=== PATIENT | female | born 1945 ===

== ENCOUNTER 2022-07-13 11:41 | Inpatient (IN) ==
--- NOTE | 2022-07-11 15:54 | History & Physical Report ---
Date of Service July 11, 2022 Assessment & Plan (1) Right foot ulcer: Plan: Schedule right foot I&D ulcerations, removal of retrocalcaneal nail from pantalar fusion site, implantation Stimulan antibiotic beads for 07/13/2022. All potential risks, benefits, complications, alternatives, and rehab have been discussed with the patient and she wishes to proceed. Plan to restart aspirin 81 mg daily postop for DVT prophylaxis. (2) Infected hardware in right lower extremity: History of Present Illness Chief Complaint: Right foot ulceration Primary Care Provider: Jayesh Jayesh This is a patient with a chronic history of right lower extremity ulcerations secondary to peripheral vascular disease. She previously had an equinus contracture which developed lateral ankle and foot ulcerations. Once the ulcerations had improved and resolved, she underwent a right pantalar fusion with retrocalcaneal nail. However, she has had issues with skin healing as well as recurrent ulcerations and infection of the right lower extremity. She was set up previously for removal of the hardware however went into acute renal fail ure. She is now medically stable and is being set up for surgical treatment. Allergies Allergy/AdvReac Type Severity Reaction Status Date / Time adhesive tape Allergy Severe SKIN GETS Verified 07/11/22 10:51 RAW-PAPER TAPE OK codeine Allergy Unknown Unknown Verified 07/11/22 10:51 Home Medications Medication Instructions Recorded Confirmed Type amoxicillin 500 mg-potassium 1 tab PO BID 07/11/22 07/11/22 History clavulanate 125 mg tablet (Augmentin) aspirin 81 mg tablet,delayed 81 mg PO QAM 07/11/22 07/11/22 History release gabapentin 300 mg capsule 300 mg PO TID 07/11/22 07/11/22 History insulin NPH-regular human 100 22 - 28 unit subcut BID 07/11/22 07/11/22 History unit/mL (70-30) subcutaneous cartridge lactobacillus combination no.4 3 3,000 mmu cells PO QPM 07/11/22 07/11/22 History billion cell capsule (Probiotic) metformin 500 mg tablet 500 mg PO BID 07/11/22 07/11/22 History multivitamin 1 tab PO QAM 07/11/22 07/11/22 History pantoprazole 40 mg tablet,delayed 40 mg PO QAM 07/11/22 07/11/22 History release rosuvastatin 5 mg tablet 5 mg PO Q2D 07/11/22 07/11/22 History Past Med/Surg History Medical History Anxiety HX Arrhythmia F/U DR HARPER [place] Diabetes mellitus, type 2 GI bleed BLEEDING ULCERS 2019-4 UNITS BLOOD TRANSFUSED Implantable loop recorder present Neuropathy Stroke 12/16/21-[facility]AFFECTED RIGHT [id number] ISSUES SINCE- WAS ON ELIQUIS-STOPPED 05/24/22 ONLY ON ASPIRIN NOW-F/U DR JOSE WASHBURN Surgical History History of appendectomy History of cholecystectomy History of colonoscopy History of esophagogastroduodenoscopy (EGD) Implantable loop recorder present Nausea and vomiting after administration of anesthetic agent YRS AGO S/P foot surgery, left S/P lumpectomy, right breast BENIGN-NO ARM RESTRICTION Status post right foot surgery X 3 Family History Mother Family history of reaction to anesthesia PONV Brother Family history of diabetes mellitus Brother Family history of diabetes mellitus Brother Family history of diabetes mellitus Sister Family history of diabetes mellitus Sister Family history of diabetes mellitus Social History Smoking Status: Never smoker Second Hand Exposure: No; Do You Dip or Chew Tobacco: No; Hx Alcohol Use: No Hx Substance Use: No Preferred Language: [place] Communication Ability: Effective Etcher Electrolytic Required: No Beliefs That Will Affect Care: None Current Living Situation: Spouse current occupational status: retired Other Information That Helps Us Care for You: No Feels Safe at Home: Yes Safety Concerns: Feels Safe At This Time Assistive Devices: Denture - Upper, Glasses and Wheelchair Assistive Devices Comment: PARTIAL Physical Exam Constitutional: well developed and well nourished; no acute distress ENMT: external ear and nose normal, oropharynx normal Neck: trachea midline Respiratory: normal respiratory effort, lungs clear to auscultation Cardiovascular: Rate/Rhythm: regular rate and regular rhythm Gastrointestinal (Abdomen): normal bowel sounds, soft, nontender, no hepatosplenomegaly Musculoskeletal: Ankle: + skin erythema (Right lower extremity near wounds) and + limited ROM of ankle (Right pantalar fusion); no ecchymosis Skin: no rashes, warm and dry + ulcer (Right anterior medial distal tibia, plantar heel) Neurologic: + abnormal touch/pain/proprioception (Decree sensation bilateral lower extremities) Psychiatric: A+Ox3, euthymic affect Speech: normal rate/rhythm/volume of speech Lymphatic: no cervical or axillary lymphadenopathy
--- NOTE | 2022-07-12 09:37 | Anesthesiology Consultation ---
Date of Service July 12, 2022 Assessment & Plan (1) Encounter for pre-operative examination: Plan - check BSG and BMP STAT am DOS. - anemia (H&H ), hyperkalemia (K 5.3), renal function (BUN 46, Cr 2). Discussed case with Dr. Rothman who advised repeat BMP STAT am DOS. - PCP unavailable per surgeon's office, no available loop recorder report. Patient acceptable to present for surgery tomorrow per discussion with Dr. Rothman, will pend anesthesiologist evaluation am DOS. - cardiology 06/21/22: "...BP/pulse acceptable...denies CP, pressure or squeezing sensation. Breathing has been stable...took her off the eliquis...12/2021 Holter- WNL...04/2019 admit after elective echocardiogram showing large pericardial effusion...s/p pericardiocentesis...04/2019 < 50% R ICA stenosis, normal left carotid...Hx CVA with concern for cardioembolic source, STACIA with no evidence of PFO, off AC at this time through neuro...continue to monitor with ILR. Pericardial effusion-no further on echo, monitor...Return in 1 year..." - COVID screening: Per home assessment nurse on 07/11/2022: Travel screen negative, no known COVID-19 positive contacts or current COVID-19 related symptoms in past 2 weeks. Pt vaccinated. Pre-op COVID testing to surgeon's discretion. Chart Review Chart Review: Acceptable Risk for Surgery (pending anesthesiologist evaluation am DOS) and Patient NOT seen in Pre Admission Testing History Surgery Operation Date: 07/13/22 13:25 Proposed Procedures p Right Ankle Removal of Retrocalcaneal Nail, - Luis Wallis DO s Implantation of Stimulan Antibiotic Beads - Luis Wallis DO Height/Weight Height: 5 ft 1 in Weight: 61.689 kg Allergies Allergy/AdvReac Type Severity Reaction Status Date / Time adhesive tape Allergy Severe SKIN GETS Verified 07/11/22 10:51 RAW-PAPER TAPE OK codeine Allergy Unknown Unknown Verified 07/11/22 10:51 Medications Home Medications Medication Instructions Recorded Confirmed Last Taken amoxicillin 500 mg-potassium 1 tab PO BID 07/11/22 07/11/22 Unknown clavulanate 125 mg tablet (Augmentin) aspirin 81 mg tablet,delayed 81 mg PO QAM 07/11/22 07/11/22 Unknown release gabapentin 300 mg capsule 300 mg PO TID 07/11/22 07/11/22 Unknown insulin NPH-regular human 100 22 - 28 unit subcut BID 07/11/22 07/11/22 Unknown unit/mL (70-30) subcutaneous cartridge lactobacillus combination no.4 3 3,000 mmu cells PO QPM 07/11/22 07/11/22 Unknown billion cell capsule (Probiotic) metformin 500 mg tablet 500 mg PO BID 07/11/22 07/11/22 Unknown multivitamin 1 tab PO QAM 07/11/22 07/11/22 Unknown pantoprazole 40 mg tablet,delayed 40 mg PO QAM 07/11/22 07/11/22 Unknown release rosuvastatin 5 mg tablet 5 mg PO Q2D 07/11/22 07/11/22 Unknown Past Medical History Medical History (Updated 07/12/22 @ 09:19 by Kelly Benavidez PA-C) Anxiety HX Diabetes mellitus, type 2 IDDM History of blood transfusion 4 units PRBCs 2019 in setting of GI bleed History of GI bleed 2019 Implantable loop recorder present Mitral regurgitation mild to moderate Neuropathy Stroke 12/16/21-ADMITT[facility]-AFFECTED RIGHT [id number] ISSUES SINCE- WAS ON ELIQUIS-STOPPED 05/24/22 ONLY ON ASPIRIN NOW-F/U DR JOSE WASHBURN Past Family History Family History Mother Family history of reaction to anesthesia PONV Brother Family history of diabetes mellitus Brother Family history of diabetes mellitus Brother Family history of diabetes mellitus Sister Family history of diabetes mellitus Sister Family history of diabetes mellitus Past Surgical History Surgical History History of appendectomy History of cholecystectomy History of colonoscopy History of esophagogastroduodenoscopy (EGD) Implantable loop recorder present Nausea and vomiting after administration of anesthetic agent YRS AGO S/P foot surgery, left S/P lumpectomy, right breast BENIGN-NO ARM RESTRICTION Status post right foot surgery X 3 Social History Smoking Status: Never smoker Do You Dip or Chew Tobacco: No Hx Alcohol Use: No Hx Substance Use: No Testing Laboratory Results 05/18/2022 WBC: 7.7 H/H: 10/33 PLATELETS: 358 SODIUM: 145 POTASSIUM: 5.3 CHLORIDE: 110 CO2: 26 BUN: 46 CREATININE: 2 GLUCOSE: 171 PT: 15 PTT: 23 INR: 1.3 Electrocardiogram Date: 07/19/21 Sinus rhythm with first degree AV block with occasional ventricular premature complexes, rate 62 bpm Chest X-Ray Date: 05/18/22 Loop recorder is incidentally noted on the left No acute cardiopulmonary abnormalities
[~2022-07-13 11:41] MED LIST: SODIUM CHLORIDE 0.9% 1000ML IV SCH
[2022-07-13] MEDS ORDERED: MIDAZOLAM HCL 1 MG/ML 2ML VIAL ONE (11:57)
[2022-07-13] MEDS ORDERED: fentaNYL citrate 100 MCG/2 ML VIAL ONE ×2 (11:58→16:13)
[2022-07-13] MEDS ORDERED: PROPOFOL IV EMULSION 10 MG/ML 20 ML VIAL IV ONE ×2 (11:58→16:52)
[2022-07-13] MEDS ORDERED: LIDOCAINE 2% MPF LOCAL 5 ML VIAL INFIL ONE (11:58)
[2022-07-13 12:40] LABS: BUN Creatinine Ratio 18.8 (10-20); Calcium 9.3 mg/dl (8.5-10.1); Est GFR (African American) 27.7 ml/min; Est GFR (Non-African American) 23.9 ml/min; Potassium 4.8 mmol/L (3.5-5.1)
[2022-07-13] MEDS ORDERED: ONDANSETRON INJ 2 MG/ML 2 ML VIAL ONE ×2 (13:02→16:52)
[2022-07-13] MEDS ORDERED: DEXAMETHASONE SOD INJ 4 MG/ML VIAL ONE (13:02)
--- NOTE | 2022-07-13 13:21 | History & Physical Bridge Note ---
Date of Service July 13, 2022 History & Physical Bridge Note I have examined the patient, reviewed the History & Physical and in the interval since the performance of the History & Physical I have noted the following changes of clinical significance: no changes noted
[2022-07-13] MEDS ORDERED: ceFAZolin 2000MG 2,000 MG/15 ML SYR IV ONE (13:31)
[2022-07-13] MEDS ORDERED: ceFAZolin 2,000 MG/15 ML IV PUSH IV ONE (13:33)
[2022-07-13] MEDS ORDERED: ONDANSETRON INJ 2 MG/ML 2 ML VIAL IV PRN ×2 (15:31→20:31)
[2022-07-13] MEDS ORDERED: fentaNYL citrate 100 MCG/2 ML VIAL IV PRN (15:31)
[2022-07-13] MEDS ORDERED: ATROPINE SULFATE 0.1 MG/ML 10ML SYR IV PRN (15:31)
[2022-07-13] MEDS ORDERED: ePHEDrine sulfate 50 MG/ML AMP IV PRN (15:31)
[2022-07-13] MEDS ORDERED: ROPIVACAINE 0.5% 5 MG/ML 30 ML VIAL ONE (16:19)
[2022-07-13] MEDS ORDERED: BUPIVACAINE 0.5 % 5 MG/1 ML MPF 30ML VIAL ONE (16:27)
[2022-07-13] MEDS ORDERED: VANCOMYCIN HCL 1000MG/20ML VIAL ONE (16:32)
[2022-07-13] MEDS ORDERED: GENTAMICIN SULFATE 40 MG/ML 2 ML VIAL ONE (16:32)
[2022-07-13] MEDS ORDERED: ceFAZolin 330 MG/ML 1 GM VIAL ONE (17:33)
[2022-07-13] MEDS ORDERED: ALBUTEROL HFA INHALER 8.5 GM ONE (18:31)
--- NOTE | 2022-07-13 18:50 | Post Operative Brief Note ---
Immediate Post Op Note v1 Date of Surgery July 13, 2022 Pre & Post Diagnosis Operation Date: 07/13/22 13:25 Pre-Op Diagnosis: Right infected retrocalcaneal nail hardware in right lower extremity, medial tibial ulcer 1.4 cm x 0.7 cm, medial tibial ulcer 1.5 cm x 0.7 cm Post-Op Diagnosis: Right infected retrocalcaneal nail hardware in right lower extremity, medial tibial ulcer 1.4 cm x 0.7 cm, medial tibial ulcer 1.5 cm x 0.7 cm I identified the patient and participated in the time-out.: Yes Procedure Operation Date: 07/13/22 13:25 Actual Procedures p Right Ankle Removal of infected retrocalcaneal Nail, Irrigation and Debridement Medial Tibial Ulcer 1.4 cm x 0.7 cm including skin, dermis, fascia and periosteum, irrigation debridement medial tibial ulcer 1.5 cm x 0.7 cm including skin, dermis, fascia and periosteum(Right) - Luis Wallis DO s Implantation of Stimulan Antibiotic Beads right tibia/talus/calcaneus (Right) - Luis Wallis DO Surgeon Luis Wallis DO Hide House Supervisor Antony Dominguez PA-C Estimated Blood Loss 15 Findings Consistent with Post-Op Diagnosis Specimens Aerobic, anaerobic, gram stain deep tibia Tissue for pathological assessment distal tibia Anesthesia Type General Regional Complications none Disposition Accompanied Patient To Recovery: No
[2022-07-13] MEDS ORDERED: MEPERIDINE HCL 25 MG/ML CARP/VIAL ONE (19:13)
[2022-07-13] MEDS ORDERED: LABETALOL HCL IV 5 MG/ML 20ML IV ONE (19:29)
[2022-07-13] MEDS ORDERED: LABETALOL HCL IV 5 MG/ML 20ML IV STA (19:41)
--- NOTE | 2022-07-13 20:29 | Fluoroscopy Report ---
FL ankle RT 2V CLINICAL HISTORY: RIGHT ANKLE REMOVAL OF RETROCALCANEAL NAIL COMPARISON STUDY: None. FLUOROSCOPY TIME: 34 seconds. FLUOROSCOPIC IMAGES: 3 FINDINGS: Bony detail is diminished given fluoroscopic technique. Previous hardware tract is noted wi thin the tibia. Placement of antibiotic-impregnated beads is noted. Right ankle/hindfoot deformity is present. IMPRESSION: Fluoroscopy provided during removal of hardware and implantation of antibiotic impregnat ed beads. ACT 112: Negative or not required by law. Electronically signed by: Allen Bee M.D. 07/13/2022 8:28 PM
--- NOTE | 2022-07-13 20:29 | Anesthesiology Progress Note ---
Date of Service July 13, 2022 Anesthesia Post Procedure Vital Signs Vital Signs: Temp Pulse Pulse Resp BP Pulse Ox O2 Del Method 07/13/22 20:05 68 17 161/61 H 97 Room Air 07/13/22 19:55 70 20 158/68 H 97 Room Air 07/13/22 19:45 36.6 C 69 12 140/98 94 Room Air 07/13/22 19:35 68 12 162/71 H 95 Room Air 07/13/22 19:25 73 12 173/90 H 98 Room Air 07/13/22 19:15 74 12 174/78 H 100 Oxymask 07/13/22 19:05 72 12 167/72 H 95 Oxymask 07/13/22 18:56 36.4 C L 74 16 124/81 97 Oxymask 07/13/22 12:20 36.8 C 78 18 166/73 H 96 Room Air O2 Flow Rate 07/13/22 20:05 07/13/22 19:55 07/13/22 19:45 07/13/22 19:35 07/13/22 19:25 07/13/22 19:15 9 07/13/22 19:05 9 07/13/22 18:56 9 07/13/22 12:20 Transfer of Care Handoff Completed per policy Notes Mental Status: alert / awake / arousable and participated in evaluation Patient Amnestic to Procedure: Yes Nausea / Vomiting: adequately controlled Pain: adequately controlled Airway Patency, RR, SpO2: stable & adequate BP & HR: stable & adequate Hydration State: stable & adequate Anesthetic Complications: no major complications apparent and Pt Satisfied with anesthetic care
[2022-07-13] MEDS ORDERED: HYDROmorphone INJ 0.5 MG/0.5 ML SYR IV PRN (20:31)
[2022-07-13] MEDS ORDERED: SODIUM CHLORIDE 0.9% 1000ML 1,000 ML IV SCH (20:31)
[2022-07-13] MEDS ORDERED: MAGNESIUM HYDROXIDE SUSP 30 ML UDC PO PRN (20:31)
[2022-07-13] MEDS ORDERED: PHARMACY GLYCEMIC MGMT CONSULT PRN (20:31)
[2022-07-13] MEDS ORDERED: METOCLOPRAMIDE HCL INJ 5 MG/ML 2 ML VIAL IV PRN (20:31)
[2022-07-13] MEDS ORDERED: bisacodyL 10 MG SUPP PR PRN (20:31)
[2022-07-13] MEDS ORDERED: VANCOMYCIN CONSULT ACTIVE PRN (20:31)
[2022-07-13] MEDS ORDERED: oxyCODONE HCL IR 5 MG TAB (IMMEDIATE RELEASE) PO PRN (20:31)
[2022-07-13] MEDS ORDERED: NALOXONE HCL 0.4 MG/1 ML VIAL/CARP IV PRN (20:31)
[2022-07-13] MEDS ORDERED: DEXTROSE 50% 50 ML SYRINGE IV PRN (21:00)
[2022-07-13] MEDS ORDERED: GLUCAGON FOR INJ 1 MG VIAL SQ PRN (21:00)
[2022-07-13] MEDS ORDERED: GLUCOSE 40% GEL 15 GM TUBE PO PRN (21:00)
[2022-07-13] MEDS ORDERED: GLUCOSE 10 TAB/TUBE PO PRN (21:00)
--- NOTE | 2022-07-13 21:03 | Hospitalist Consultation ---
Date of Consultation July 13, 2022 Assessment & Plan (1) Infected hardware in right lower extremity: POD #0 for removal of hardware, I&D of ulcer and implantation of abx beads performed by DR. Wallis - Pain control per primary team- tiered and with rescue Narcan available as you have - ABX per primary team - IVF per primary team - Dressings and drains per primary team - VTE prophylaxis per primary team - Blood Transfusions per primary team - Diet per primary team - PT/OT per primary team (2) Stroke: History of CVA 2021, thought to be cardioembolic in nature with loop recorder in place - ASA as above restart when hemostasis ensured by primary surgical tea - She is on every other day statin - Follow BP - no residual symptoms (3) HTN (hypertension): Usually well controlled per patient - previously was on Amlodipine but since has been discontinued - Notify if > 180 or symptoms (4) Anxiety: Follow - no acute needs (5) History of GI bleed: Continue PPI (6) Diabetes mellitus, type 2: Glycemic pharmacy consulted (7) Carotid artery disease: <50% on right none on left - continue statin - routine screenings with PCP Supervising Physician Co-Signing Physician Notes Patient seen and examined, chart reviewed, case discussed with Babita and I agree with the assessment and plan as above. In brief, patient is a pleasant 76yo female with history of DM, HTN, prior CVA and history of pericardial effusion. She had removal of infected hardware with debridement of ulcers performed today by Dr. Wallis on the right ankle. Surgery went well with no complications identified. On exam she is resting comfortably, pain well controlled, NAD RLE with dressing in place +S1/S2, regular, no m/r/g Lungs CTA Abd soft, NT/ND Ext RLE dressed, sensation intact Labs and images reviewed. Assessment/Plan - Post-operative management per primary team - pain control, antibiotics, anti- emetics, PT/OT HTN - Amlodipine was recently discontinued. Pain control. Monitor BP H/O GIB - PPI H/O CVA - ASA when cleared with primary team Remainder as above History of Present Illness Reason for Consultation: Listed reason for consultation: Post op Requesting Physician: Dr. Wallis Attending Physician: Luis Wallis DO History of Present Illness 76 YOF with medical history of: Pericardial Effusion (2018), CVA (12/09), DM II (on insulin), neuropathy, HTN, PUD <50% LUCIA stenosis, none on left, PVD. Hospital Medicine was consulted for Post-operative medical management. Patient is POD #0 from infected hardware removal, I&D of foot medial tibial ulcer of the right lower extremity and implantation of antibiotic beads. She had LMA for airway during surgery, required no vasopressors during case, EBL 15ml. Patient was seen in her room postoperatively. She is briskly awake with no nausea and pain is controlled. She is on room air with stable hemodynamics. Her right foot is wrapped in PRACHI wrap with Ice covering. Recommendations: - Restart Aspirin when hemostasis is ensured for her history of CVA - Continue her every other day statin as you have - Tiered Pain control with rescue Narcan as you have - Pharmacy has been consulted for her diabetes management - Continue PPI Medicine will sign off at this time. Please consult us if her clinical course changes or other needs arise. Thank you for allowing us to participate in the care of this patient. Allergies Allergy/AdvReac Type Severity Reaction Status Date / Time adhesive tape Allergy Severe SKIN GETS Verified 07/13/22 12:16 RAW-PAPER TAPE OK clindamycin Allergy Unknown Rash Verified 07/13/22 22:12 codeine Allergy Unknown Unknown Verified 07/13/22 12:16 Home Medications Medication Instructions Recorded Confirmed Type amoxicillin 500 mg-potassium 1 tab PO BID 07/11/22 07/13/22 History clavulanate 125 mg tablet (Augmentin) aspirin 81 mg tablet,delayed 81 mg PO QAM 07/11/22 07/13/22 History release gabapentin 300 mg capsule 300 mg PO TID 07/11/22 07/13/22 History insulin NPH-regular human 100 22 - 28 unit subcut BID 07/11/22 07/13/22 History unit/mL (70-30) subcutaneous cartridge lactobacillus combination no.4 3 3,000 mmu cells PO QPM 07/11/22 07/13/22 History billion cell capsule (Probiotic) metformin 500 mg tablet 500 mg PO BID 07/11/22 07/13/22 History multivitamin 1 tab PO QAM 07/11/22 07/13/22 History pantoprazole 40 mg tablet,delayed 40 mg PO QAM 07/11/22 07/13/22 History release rosuvastatin 5 mg tablet 5 mg PO Q2D 07/11/22 07/13/22 History Patient History Medical History Anxiety HX Diabetes mellitus, type 2 IDDM History of blood transfusion 4 units PRBCs 2018 in setting of GI bleed History of GI bleed 2019 HTN (hypertension) Implantable loop recorder present Mitral regurgitation mild to moderate Neuropathy Stroke 12/16/21-ADMITTED [facility]-AFFECTED RIGHT [id number] ISSUES SINCE- WAS ON ELIQUIS-STOPPED 05/24/22 ONLY ON ASPIRIN NOW-F/U DR JOSE WASHBURN Surgical History History of appendectomy History of cholecystectomy History of colonoscopy History of esophagogastroduodenoscopy (EGD) Implantable loop recorder present Nausea and vomiting after administration of anesthetic agent YRS AGO S/P foot surgery, left S/P lumpectomy, right breast BENIGN-NO ARM RESTRICTION Status post right foot surgery X 3 Family History Mother Family history of reaction to anesthesia PONV Brother Family history of diabetes mellitus Brother Family history of diabetes mellitus Brother Family history of diabetes mellitus Sister Family history of diabetes mellitus Sister Family history of diabetes mellitus Social History Smoking Status: Never smoker Second Hand Exposure: No; Do You Dip or Chew Tobacco: No; Hx Alcohol Use: No Hx Substance Use: No Preferred Language: Ivorian Communication Ability: Effective Photographer Model Required: No Beliefs That Will Affect Care: None Current Living Situation: Spouse current occupational status: retired Other Information That Helps Us Care for You: No Feels Safe at Home: Yes Safety Concerns: Feels Safe At This Time Assistive Devices: Denture - Upper, Glasses and Wheelchair Assistive Devices Comment: PARTIAL Review of Systems Review of Systems: REVIEW OF SYSTEMS: Constitutional: No fever, sweats or chills Eyes: No diplopia, no worsening or blurred vision ENT: normal hearing, no trouble swallowing Respiratory: No cough, sputum, dyspnea at rest or on exertion Cardiovascular: No chest pain, tightness or palpitations Abdomen: No pain, nausea, vomiting, diarrhea or constipation Musculoskeletal: No joint pain, calf pain, swelling Neurologic: (+) decreased sensation to bilateral feet and legs (chronic), No weakness, numbness/tingling, or balance problems Psychiatric: No anxiety or depression Skin: No rash or itch Physical Exam Physical Exam: PHYSICAL EXAM: General: awake, alert, no apparent distress Head: Normocephalic, atraumatic ENT: PERRL, EOMI, no pharyngeal exudate, mucous membranes moist Neuro: AAO x 3, speech clear and appropriate, strength intact bilaterally 5/5, no pronator drift Chest: equal rise and fall of the chest, no accessory muscle use, no heaves or thrills, Clear to auscultation, on room air, Cardiac: Regular rate and rhythm, S1 S2, skin warm dry, cap refill <3 seconds, peripheral pulses +2 no JVD, no murmur,no edema GI: NABS x 4 quadrants, soft, nontender to palpation, no rebound, guarding or tenderness : Spontaneously voiding, no pain, no CVA tenderness, Extremities: Ritght foot with PRACHI wrap up above ankle, toes are warm and pink, Results & Data Results & Data ([facility]) Vital Signs (Past 12 Hours) Vital Signs Temp Pulse Pulse Resp BP Pulse Ox O2 Del Method 07/13/22 20:15 36.7 C 70 18 163/66 H 91 Room Air 07/13/22 20:45 36.4 C L 64 16 169/62 H 94 Room Air 07/13/22 20:05 68 17 161/61 H 97 Room Air 07/13/22 19:55 70 20 158/68 H 97 Room Air 07/13/22 19:45 36.6 C 69 12 140/98 94 Room Air 07/13/22 19:35 68 12 162/71 H 95 Room Air 07/13/22 19:25 73 12 173/90 H 98 Room Air 07/13/22 19:15 74 12 174/78 H 100 Oxymask 07/13/22 19:05 72 12 167/72 H 95 Oxymask 07/13/22 18:56 36.4 C L 74 16 124/81 97 Oxymask 07/13/22 12:20 36.8 C 78 18 166/73 H 96 Room Air O2 Flow Rate 07/13/22 20:15 07/13/22 20:45 07/13/22 20:05 07/13/22 19:55 07/13/22 19:45 07/13/22 19:35 07/13/22 19:25 07/13/22 19:15 9 07/13/22 19:05 9 07/13/22 18:56 9 07/13/22 12:20 Laboratory Results Abnormal lab results 07/13/22 07/13/22 07/13/22 Range/Units 12:03 12:04 18:59 Chloride 109 H (98-107) mmol/L BUN 37 H (6-23) mg/dl Creatinine 1.97 H (0.6-1.2) mg/dl Glucose 155 H (70-99(Fasting)) mg/dl POC Glucose 151 H 136 H (70-99) mg/dl 07/13/22 Range/Units 21:20 Chloride (98-107) mmol/L BUN (6-23) mg/dl Creatinine (0.6-1.2) mg/dl Glucose (70-99(Fasting)) mg/dl POC Glucose 168 H (70-99) mg/dl Diagnostic Findings Ankle X-Ray 07/13/22 13:25 FL ankle RT 2V CLINICAL HISTORY: RIGHT ANKLE REMOVAL OF RETROCALCANEAL NAIL COMPARISON STUDY: None. FLUOROSCOPY TIME: 34 seconds. FLUOROSCOPIC IMAGES: 3 FINDINGS: Bony detail is diminished given fluoroscopic technique. Previous hardware tract is noted within the tibia. Placement of antibiotic-impregnated be ads is noted. Right ankle/hindfoot deformity is present. IMPRESSION: Fluoroscopy provided during removal of hardware and implantation of antibiotic impregnated beads. ACT 112: Negative or not required by law. Electronically signed by: Allen Bee M.D. 07/13/2022 8:28 PM Medications Administered Home Medications amoxicillin 500 mg-potassium clavulanate 125 mg tablet (Augmentin) 1 tab PO BID 07/11/22 [History Confirmed 07/13/22] aspirin 81 mg tablet,delayed release 81 mg PO QAM 07/11/22 [History Confirmed 07/13/22] gabapentin 300 mg capsule 300 mg PO TID 07/11/22 [History Confirmed 07/13/22] insulin NPH-regular human 100 unit/mL (70-30) subcutaneous cartridge 22 - 28 unit subcut BID 07/11/22 [History Confirmed 07/13/22] lactobacillus combination no.4 3 billion cell capsule (Probiotic) 3,000 mmu cells PO QPM 07/11/22 [History Confirmed 07/13/22] metformin 500 mg tablet 500 mg PO BID 07/11/22 [History Confirmed 07/13/22] multivitamin 1 tab PO QAM 07/11/22 [History Confirmed 07/13/22] pantoprazole 40 mg tablet,delayed release 40 mg PO QAM 07/11/22 [History Confirmed 07/13/22] rosuvastatin 5 mg tablet 5 mg PO Q2D 07/11/22 [History Confirmed 07/13/22] Active Medications Acetaminophen (Acetaminophen 500 Mg Tab) 1,000 mg PO Q8 GISSELL Stop: 08/12/22 21:59 Aspirin (Aspirin 81 Mg Ectab) 81 mg PO BID GISSELL Stop: 08/12/22 20:59 Bisacodyl (Bisacodyl 10 Mg Supp) 10 mg VT DAILY PRN PRN Reason: Constipation Stop: 08/12/22 20:30 Dextrose (Dextrose 50% 50 Ml Syringe) 25 - 50 ml IV UD PRN; Protocol PRN Reason: Hypoglycemia Protocol Stop: 08/12/22 20:59 Docusate Sodium (Docusate Sodium 100 Mg Cap) 100 mg PO BID GISSELL Stop: 08/12/22 20:59 Gabapentin (Gabapentin 300 Mg Cap) 300 mg PO TID GISSELL Stop: 08/12/22 20:59 Glucagon (Glucagon For Inj 1 Mg Vial) 1 mg SQ UD PRN; Protocol PRN Reason: Hypoglycemia Protocol Stop: 08/12/22 20:59 Glucose (Glucose 40% Gel 15 Gm Tube) 15 - 30 gm PO UD PRN; Protocol PRN Reason: Hypoglycemia Protocol Stop: 08/12/22 20:59 Glucose (Glucose 10 Tab/Tube) 4 - 8 tab PO UD PRN; Protocol PRN Reason: Hypoglycemia Protocol Stop: 08/12/22 20:59 Hydromorphone HCl (Hydromorphone Inj 0.5 Mg/0.5 Ml Syr) 0.5 mg IV Q4H PRN PRN Reason: Pain or Pre PT Stop: 07/27/22 20:30 Cefazolin Sodium (Ancef 2000mg) 2,000 mg in 15 mls @ 3.75 mls/min IV PREOP ONE Stop: 07/13/22 13:34 Last Admin: 07/13/22 17:05 Dose: 3.75 mls/min Sodium Chloride (Nss 1000ml) 1,000 mls @ 100 mls/hr IV .Q10H GISSELL Stop: 07/14/22 06:00 Vancomycin HCl 1,500 mg/ (Sodium Chloride) 530 mls @ 200 mls/hr IV ONE ONE Stop: 07/14/22 00:08 Vancomycin HCl 500 mg/ (Dextrose) 110 mls @ 132 mls/hr IV Q18H GISSELL Stop: 08/25/22 08:59 Insulin Aspart (Insulin Aspart Per Unit) 0 units SC ACHS GISSELL Stop: 08/12/22 20:59 Insulin Human NPH (Insulin Human Nph) 12 units SC BIDM GISSELL; Protocol Stop: 08/13/22 07:59 Labetalol HCl (Labetalol Hcl Iv 5 Mg/Ml 20ml) 10 mg IV NOW STA Stop: 07/13/22 19:42 Lactobacillus Acidophilus (Advanced Probiotic 1250 Mg Capsule) 2 cap PO QPM GISSELL Stop: 08/12/22 20:59 Magnesium Hydroxide (Magnesium Hydroxide Susp 30 Ml Udc) 30 ml PO Q6H PRN PRN Reason: Constipation Stop: 08/12/22 20:30 Metoclopramide HCl (Metoclopramide Hcl Inj 5 Mg/Ml 2 Ml Vial) 10 mg IV Q6H PRN PRN Reason: Nausea And Vomiting Stop: 08/12/22 20:30 Miscellaneous (Carbohydrates For Hypoglycemia ) 15 - 30 gm PO UD PRN PRN Reason: Hypoglycemia Treatment Stop: 08/12/22 20:59 Miscellaneous Information (Pharmacy Glycemic Mgmt Consult) 1 each N/A UD PRN PRN Reason: Consult Stop: 08/12/22 20:30 Miscellaneous Information (Vancomycin Consult Active) 1 each N/A UD PRN PRN Reason: Consult Stop: 08/12/22 20:30 Multivitamins (Multivitamin Tab) 1 tab PO QAM GISSELL Stop: 08/13/22 08:59 Naloxone HCl (Naloxone Hcl 0.4 Mg/1 Ml Vial/Carp) 0.1 mg IV Q5M PRN PRN Reason: Oversedation/Resp Depression Stop: 08/12/22 20:30 Ondansetron HCl (Ondansetron Inj 2 Mg/Ml 2 Ml Vial) 4 mg IV Q6H PRN PRN Reason: Nausea And Vomiting Stop: 08/12/22 20:30 Oxycodone HCl (Oxycodone Hcl Ir 5 Mg Tab (Immediate Release)) 5 - 10 mg PO Q4H PRN PRN Reason: Pain or Pre PT Stop: 07/27/22 20:30 Pantoprazole Sodium (Pantoprazole 40 Mg Tab) 40 mg PO QAM GISSELL Stop: 08/13/22 08:59 Rosuvastatin Calcium (Rosuvastatin Calcium 5 Mg Tab) 5 mg PO Q2D@2100 GISSELL Stop: 08/12/22 20:59 Sennosides (Senna 8.6 Mg Tab) 17.2 mg PO HS GISSELL Stop: 08/12/22 20:59 PG Care Time/CCT Total # of Minutes Spent Total Time Spent with Patient: Total time spent is greater than 50% in coordination of care (as documented) at patient's floor/unit and/or counseling patient: Coding Level of Care Code 55078 Office/OBS Consult Lvl 2 Diagnoses Infected hardware in right lower extremity T84.7XXA Stroke I63.9 HTN (hypertension) I10 Anxiety F41.9 History of GI bleed Z87.19 Diabetes mellitus, type 2 E11.9 Carotid artery disease I77.9
[2022-07-13] MEDS ORDERED: VANCOMYCIN HCL 1,500 MG in SODIUM CHLORIDE 0.9% 500 ML IV ONE (21:30)
[2022-07-13] MEDS: DOCUSATE SODIUM 100 MG CAP PO SCH (21:55)
[2022-07-13] MEDS: GABAPENTIN 300 MG CAP PO SCH (21:55)
[2022-07-13] MEDS: ADVANCED PROBIOTIC 1250 MG CAPSULE PO SCH (21:56)
[2022-07-13] MEDS: ASPIRIN 81 MG ECTAB PO SCH (21:56)
[2022-07-13] MEDS: ROSUVASTATIN CALCIUM 5 MG TAB PO SCH (21:56)
[2022-07-13] MEDS: ACETAMINOPHEN 500 MG TAB PO SCH (21:56)
[2022-07-13] MEDS: SENNA 8.6 MG TAB PO SCH (21:57)
[2022-07-13] MEDS: INSULIN ASPART PER UNIT SC SCH (21:58)
--- NOTE | 2022-07-13 23:48 | Operative Report (OR) ---
DATE OF PROCEDURE: 07/13/2022. PREOPERATIVE DIAGNOSES: 1. Right infected retrocalcaneal nail hardware, right lower extremity. 2. Medial tibial ulcer 1.4 cm diameter x 0.7 cm deep. 3. Medial tibial ulcer 1.5 cm diameter x 0.7 cm deep. POSTOPERATIVE DIAGNOSES: 1. Right infected retrocalcaneal nail hardware, right lower extremity. 2. Medial tibial ulcer 1.4 cm diameter x 0.7 cm deep. 3. Medial tibial ulcer 1.5 cm diameter x 0.7 cm deep. PROCEDURES PERFORMED: 1. Right ankle removal of infected retrocalcaneal nail deep bone hardware. 2. Irrigation and debridement of medial tibial ulcer 1.4 cm diameter x 0.7 cm. This including skin, dermis, fascia and periosteum. 3. Irrigation and debridement of medial tibial ulcer 1.5 cm diameter x 0.7 cm including skin, dermis , fascia and periosteum. 4. Implantation of Stimulan antibiotic beads, tibia/talus/calcaneus, right. SURGEON: Luis Wallis DO. SURFACE HYDROLOGIST: Antony Dominguez PA-C. ANESTHESIA: General, regional. SPECIMENS: 1. Aerobic, anaerobic, Gram stain - deep tibia. 2. Tissue for pathological assessment - distal tibia. DRAINS: None. COMPLICATIONS: None. BLOOD LOSS: 15 mL. PERTINENT HISTORY: This is a 76-year-old female who has had severe Charcot arthropathy, diabetic freeman ropathy and peripheral vascular disease, who had undergone a retrocalcaneal nail fusion for Charcot a rthropathy of the hindfoot and ankle, accompanied with severe neuropathy and angular deformity. The patient initially had successful course of recovery; however, then developed a deep infection, which was attempted to have been treated with IV antibiotics, oral antibiotics, removal of some of the hard murillo, which had become exposed at the posterior heel and then the patient was failing further antibio tic therapy and then had a cerebrovascular accident. The patient had to wait several months until ne urological clearance so that she can have her infected hardware removed and then she was scheduled fo r surgery when cleared and indicated. All potential risks, benefits, complications, alternatives, rehab potential for incomplete relief of symptoms, need for further surgery, DVT, PE, , persistent pain, swelling, scarring, weakness, ne urovascular injury, wound complications, hardware failure, nonunion, malunion and bone fracture were discussed with the patient. The patient decided to proceed with the procedure as indicated. DESCRIPTION OF PROCEDURE: The patient was taken to the operative suite after a regional block was ad ministered to the right lower extremity. The patient was placed supine on the operating table. Afte r review of consent and identification of proper site, the patient was anesthetized, LMA was placed. Tourniquet was placed high on the right thigh over cast padding. Right lower extremity was then martin rilely prepped and draped in the usual fashion, elevated, and tourniquet inflated to 325 mmHg. There was no exsanguination performed due to the nature of the infection. Next, after surgical timeout was performed, the 15 blade scalpel was used to sharply debride the medi al tibial ulcers measuring 1.4 cm in diameter x 0.7 cm deep and a second ulcer of 1.5 cm in diameter x 0.7 cm deep. Debridement included sharp debridement and curettage including the skin, dermis, fasc ia and periosteum. The metallic screws were identified and then removed with a screwdriver. Next, a 15 blade scalpel was used to make a stab incision in the plantar right heel. The incision wa s deepened through skin and subcutaneous tissue to the level of the deep soft tissue and fascia. Car eful dissection was performed down to the level of the nail. The nail locking screw was then palpate d and then removed under live fluoroscopic assistance. Next, the removal tool was then engaged into the distal portion of the nail. This was then followed by collection of a deep tibial aerobic, anaer obic, Gram stain specimen, which was sent off from the distal screw hole in the tibia. Next, a 15 blade scalpel was used to make an incision in the posterolateral aspect of the talus under live fluoroscopic assistance. The transverse talus locking screw was identified and then removed. Next, the retrocalcaneal nail was then removed from the talus, tibia and calcaneus. Next, a curved c urette was then used to curettage the channel for the retrocalcaneal nail as well as transverse locki ng screw holes. Some of the tissue harvested from the tibial shaft was then sent for pathological as sessment. Next, pulsatile lavage, 6 liters was then used to lavage through the tibia. Medial locking screw hol es x2 and then from distal to proximal plantar incision was irrigated as well as the posterolateral i ncision made for the removal of the talus screw. After 6 liters of solution with Ancef and pulsatile lavage was completed, new top sheet and top gloves were changed followed by creation of antibiotic S timulan beads with vancomycin and gentamicin. These beads were crafted and then placed into a cement tube for injecting cement for arthroplasty in a retrograde fashion. This was then impacted into the tibia and from proximal to distal, the canal was filled from the tibia, into the talus, into the bennie caneus. Once completed, the incisions were then loosely closed with intermittent buried 3-0 Vicryl and nylon sutures. After radiographs were obtained and confirmed removal of hardware, a sterile compressive d ressing was applied consisting of Xeroform gauze, sterile 4 x 4s, cast padding, posterior Ortho-Glass splint and an Bryan wrap. The tourniquet was released. The patient was awakened and taken to recovery in stable condition. Job ID: [id number]
[2022-07-14 06:15] LABS: Hematocrit (blood only) 27.3 % (34.1-44.9); Hemoglobin 8.2 g/dl (12.0-16.0); Mean Corpuscular Hemoglobin 25.9 pg (25.0-34.0); Mean Corpuscular Volume 86.4 fL (80.0-100.0); Mean Platelet Volume 9.4 fL (9.4-12.3); Platelet Count 309 K/uL (130-400); RDW Coefficient of Variation 14.6 % (11.5-14.5); RDW Standard Deviation 46.1 fL (36.4-46.3); Red Blood Count 3.16 M/uL (3.93-5.22); White Blood Count 7.71 K/ul (4.8-10.8)
[2022-07-14 06:42] LABS: BUN Creatinine Ratio 18.3 (10-20); Calcium 8.5 mg/dl (8.5-10.1); Creatinine Clr Calc Pharmacy 24.5 ml/min; Est GFR (African American) 33.4 ml/min; Est GFR (Non-African American) 28.8 ml/min; Potassium 4.6 mmol/L (3.5-5.1)
[2022-07-14] MEDS: ACETAMINOPHEN 500 MG TAB PO SCH ×3 (06:42→20:31)
--- NOTE | 2022-07-14 08:53 | Hospitalist Progress Note ---
Date of Service July 14, 2022 Assessment & Plan (1) Infected hardware in right lower extremity: Plan: 07/13/22 surgery for removal of hardware, I&D of ulcer, washout and implantation of abx beads performed by DR. Wallis -pre op Cephazolin, now on vancomycin, inital gram stain negative - VTE prophylaxis surgery has opted for aspirin 81 mg bid - PT/OT post operative acute blood loss anemia will follow is 8.2 gms (2) Stroke: Plan: History of CVA 2021, thought to be cardioembolic in nature with loop recorder in place - ASA as above restart - She is on every other day rosuvastatin - (3) HTN (hypertension): Plan: Usually well controlled per patient - previously was on Amlodipine but since has been discontinued - Notify if > 180 or symptoms (4) Anxiety: Plan: Follow - no acute needs (5) History of GI bleed: Plan: Continue PPI (6) Diabetes mellitus, type 2: Plan: Glycemic pharmacy consulted, basal insulin nph plus ssi pt has Chronic kidney disease stage 3 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 (7) Carotid artery disease: Plan: <50% on right none on left - continue statin - Admission and Anticipated Discharge Date Admission Date: July 13, 2022 Subjective pt has no complaints , pain controlled Review of Systems Review of Systems: Mild distress and fatigue no headache, no visual changes no speech or swallowing issues no chest pain, pressure or palpitations no shortness of breath, cough or wheezes no abdominal pain, nausea or vomiting, diarrhea or constipation no dysuria, hematuria or frequency post op ankle discomfort but is tolerable no back pain, CVA tenderness or radicular pain no bruising, bleeding or rashes no focal signs of weakness or numbness or altered sensation no complaints of anxiety or depression.. Physical Exam Physical Exam: The patient appeared well nourished and normally developed. Vital signs as documented. Head exam is normocephalic atraumatic Neck is without JVD, thyromegaly, or carotid bruits. Lungs are clear to auscultation, no focal loss of breath sounds Cardiac exam, Rhythm is regular.. No murmurs, rubs or gallops. Abdominal exam reveals normal bowel sounds, soft non tender, no masses Psychologically is without concerns for anxiety or depression.. Results & Data Results & Data ([facility] [place]) Vital Signs (Past 12 Hours) Vital Signs Temp Pulse Resp BP Pulse Ox O2 Del Method 07/14/22 07:15 97.9 F 67 16 147/64 H 97 Room Air 07/14/22 03:19 97.5 F L 69 16 150/71 H 95 Room Air 07/13/22 22:25 97.3 F L 67 16 128/74 95 Room Air 07/13/22 22:15 97.3 F L 67 16 128/74 95 Room Air 07/13/22 21:22 97.5 F L 67 16 159/77 H 97 Room Air PG Care Time/CCT Total # of Minutes Spent Total Time Spent with Patient: Total time spent is greater than 50% in coordination of care (as documented) at patient's floor/unit and/or counseling patient: Coding Level of Care Code 72409 Subseq Hosp Care Lvl 2 Diagnoses Infected hardware in right lower extremity T84.7XXA Stroke I63.9 HTN (hypertension) I10 Anxiety F41.9 History of GI bleed Z87.19 Diabetes mellitus, type 2 E11.9 Carotid artery disease I77.9
[2022-07-14] MEDS ORDERED: MULTIVITAMIN TAB PO SCH (09:00)
[2022-07-14] MEDS: ASPIRIN 81 MG ECTAB PO SCH ×2 (09:08→20:29)
[2022-07-14] MEDS: GABAPENTIN 300 MG CAP PO SCH ×3 (09:08→20:30)
[2022-07-14] MEDS: PANTOprazole 40 MG TAB PO SCH (09:08)
[2022-07-14] MEDS: MULTIVITAMIN TAB PO SCH (09:08)
[2022-07-14] MEDS: DOCUSATE SODIUM 100 MG CAP PO SCH ×2 (09:08→20:30)
[2022-07-14] MEDS: INSULIN HUMAN NPH SC SCH ×2 (09:10→18:16)
[2022-07-14] MEDS: INSULIN ASPART PER UNIT SC SCH ×4 (09:12→21:00)
[2022-07-14] MEDS: VANCOMYCIN HCL 500 MG in DEXTROSE 5% 100 ML IV SCH (09:19)
--- NOTE | 2022-07-14 09:35 | Orthopedic Progress Note ---
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 Right ankle removal of infected retrocalcaneal nail deep bone hardware. 2. Irrigation and debridement of medial tibial ulcer 1.4 cm diameter x 0.7 cm. This including skin, dermis, fascia and periosteum. 3. Irrigation and debridement of medial tibial ulcer 1.5 cm diameter x 0.7 cm including skin, dermis, fascia and periosteum. 4. Implantation of Stimulan antibiotic beads, tibia/talus/calcaneus, right. -PT/OT: Nonweightbearing right lower extremity -Pain management as written -DVT prophylaxis: SCDs, aspirin 81 mg twice daily -AM labs: Hemoglobin is down to 8.3. Acute blood loss anemia likely due to dilutional versus surgical loss. Will follow. Patient is asymptomatic. Gram stain from OR with rare WBCs, no organisms. Cultures pending. -Continue IV antibiotics. On IV Vanco pending culture results. Plan on dressing change tomorrow. Admission and Anticipated Discharge Date Admission Date: July 13, 2022 Subjective Patient is postop day 1 right ankle hardware removal and I&D. She is doing well this morning. No complaints of pain. Does have neuropathy at baseline. No other complaints. Denies chest pain, shortness of breath, headache/dizziness, nausea/vomiting/diarrhea. Review of Systems Review of Systems: All systems reviewed & are unremarkable except as noted in Subjective Physical Exam Physical Exam: Right foot dressing is clean, dry, intact. Toes are mobile. Sensation decreased. Cap refill less than 3 seconds. No calf tenderness. Constitutional: WD/WN, vitals as above Results & Data ([facility]) Vital Signs (Past 12 Hours) Vital Signs Temp Pulse Resp BP Pulse Ox O2 Del Method 07/14/22 07:15 36.6 C 67 16 147/64 H 97 Room Air 07/14/22 03:19 36.4 C L 69 16 150/71 H 95 Room Air 07/13/22 22:25 36.3 C L 67 16 128/74 95 Room Air 07/13/22 22:15 36.3 C L 67 16 128/74 95 Room Air Diagnostic Findings Lab Results 07/13/22 07/13/22 07/13/22 Range/Units 12:03 12:04 18:59 WBC (4.8-10.8) K/ul RBC (3.93-5.22) M/uL Hgb (12.0-16.0) g/dl Hct (34.1-44.9) % MCV (80.0-100.0) fL MCH (25.0-34.0) pg MCHC (32.0-36.0) g/dL RDW Std Deviation (36.4-46.3) fL RDW Coeff of Osvaldo (11.5-14.5) % Plt Count (130-400) K/uL MPV (9.4-12.3) fL Sodium 141 (136-145) mmol/L Potassium 4.8 (3.5-5.1) mmol/L Chloride 109 H (98-107) mmol/L Carbon Dioxide 27 (21-32) mmol/L Anion Gap 5 (3-11) BUN 37 H (6-23) mg/dl Creatinine 1.97 H (0.6-1.2) mg/dl Est Cr Clr Drug Dosing 21.0 ml/min Est GFR ( Amer) 27.7 ml/min Est GFR (Non-Af Amer) 23.9 ml/min BUN/Creatinine Ratio 18.8 (10-20) Glucose 155 H (70-99(Fasting)) mg/dl POC Glucose 151 H 136 H (70-99) mg/dl Calcium 9.3 (8.5-10.1) mg/dl 07/13/22 07/14/22 07/14/22 Range/Units 21:20 05:32 05:32 WBC 7.71 (4.8-10.8) K/ul RBC 3.16 L (3.93-5.22) M/uL Hgb 8.2 L (12.0-16.0) g/dl Hct 27.3 L (34.1-44.9) % MCV 86.4 (80.0-100.0) fL MCH 25.9 (25.0-34.0) pg MCHC 30.0 L (32.0-36.0) g/dL RDW Std Deviation 46.1 (36.4-46.3) fL RDW Coeff of Osvaldo 14.6 H (11.5-14.5) % Plt Count 309 (130-400) K/uL MPV 9.4 (9.4-12.3) fL Sodium 142 (136-145) mmol/L Potassium 4.6 (3.5-5.1) mmol/L Chloride 112 H (98-107) mmol/L Carbon Dioxide 23 (21-32) mmol/L Anion Gap 7 (3-11) BUN 31 H (6-23) mg/dl Creatinine 1.69 H (0.6-1.2) mg/dl Est Cr Clr Drug Dosing 24.5 ml/min Est GFR ( Amer) 33.4 ml/min Est GFR (Non-Af Amer) 28.8 ml/min BUN/Creatinine Ratio 18.3 (10-20) Glucose 112 H (70-99(Fasting)) mg/dl POC Glucose 168 H (70-99) mg/dl Calcium 8.5 (8.5-10.1) mg/dl 07/14/22 Range/Units 07:59 WBC (4.8-10.8) K/ul RBC (3.93-5.22) M/uL Hgb (12.0-16.0) g/dl Hct (34.1-44.9) % MCV (80.0-100.0) fL MCH (25.0-34.0) pg MCHC (32.0-36.0) g/dL RDW Std Deviation (36.4-46.3) fL RDW Coeff of Osvaldo (11.5-14.5) % Plt Count (130-400) K/uL MPV (9.4-12.3) fL Sodium (136-145) mmol/L Potassium (3.5-5.1) mmol/L Chloride (98-107) mmol/L Carbon Dioxide (21-32) mmol/L Anion Gap (3-11) BUN (6-23) mg/dl Creatinine (0.6-1.2) mg/dl Est Cr Clr Drug Dosing ml/min Est GFR ( Amer) ml/min Est GFR (Non-Af Amer) ml/min BUN/Creatinine Ratio (10-20) Glucose (70-99(Fasting)) mg/dl POC Glucose 120 H (70-99) mg/dl Calcium (8.5-10.1) mg/dl
--- NOTE | 2022-07-14 14:07 | Pharmacy Report ---
Pharmacy Glycemic Short Note 2 - Date of Service July 14, 2022 - Glycemic Short BSG Results (Last 24 hours): 07/13/22 07/13/22 07/14/22 18:59 21:20 05:32 Glucose 112 H POC Glucose 136 H 168 H 07/14/22 07/14/22 07:59 11:51 Glucose POC Glucose 120 H 189 H OUTPATIENT ANTIDIABETIC REGIMEN: * Novolin 70/30- 22 - 28 units BID * metformin 500 mg PO BID * HbA1C ordered ASSESSMENT: * Ms Tomlin is a 76 y/o F with a PMH of T2DM who presents for ankle surgery. * BSGs yesterday (POD 0) were 151-136-168 mg/dL. * Patient received no dexamethasone during surgery. * Fasting today is 120 mg/dL. * Will start NPH 12 units BID + Novolog weight-based stress of 3. The NPH dosing is weight-based stress of 2 plus represents about half of her outpatient 70/30 dosing. PLAN FOR INPATIENT GLYCEMIC CONTROL: * Hold outpatient oral diabetes medications * Basal insulin * NPH 12 units SQ BID * Bolus insulin * NovoLog per scale ACHS or Q6hrs while NPO * Goal Range: Low 110 mg/dL - High 140 mg/dL * Correction Factor: 25 mg/dL/unit * Nutritional / Prandial insulin per carb ratio of 1 unit per 7 grams CHO consumed
--- NOTE | 2022-07-14 14:36 | Pharmacy Report ---
Pharmacy PK ABX Note - Date of Service July 14, 2022 - Assessment and Plan Assessment 76 year old F receiving vancomycin for treatment of possible RLE infection due to infected hardware. POD#1 from hardware removal, irrigation and debridement. Pertinent microbiologic data includes: Right leg culture pending. SCR elevated but did improve from yesterday. Random level today indicates current regimen appropriate to target goal AUC. However, will monitor scr closely for further changes. Day # 2 of antimicrobial therapy. Plan Vancomycin * Loading dose: 1500 mg IV x 1 @ 2130 * Maintenance dose: 500 mg IV every 18 hours starting this morning at 0900 * Random level 4 hours after first maintenance dose 21.6 * Regimen is predicted to achieve target AUC/DANO of 400-600 mg/L.hr * Trough [Random] level ordered for: repeat as clinically indicated Pharmacy will continue to follow and will adjust dose/frequency as necessary. Thank you. Pharmacy has transitioned to AUC monitoring for vancomycin. AUC/DANO is the preferred PK/PD target and is associated with decreased risk of nephrotoxicity compared to traditional trough targets.
[2022-07-14] MEDS: ADVANCED PROBIOTIC 1250 MG CAPSULE PO SCH (20:30)
[2022-07-14] MEDS: SENNA 8.6 MG TAB PO SCH (20:30)
[2022-07-14] MEDS: CARBOHYDRATES FOR HYPOGLYCEMIA PO PRN ×2 (20:55→21:30)
[2022-07-15] MEDS: VANCOMYCIN HCL 500 MG in DEXTROSE 5% 100 ML IV SCH (03:29)
[2022-07-15] MEDS: ACETAMINOPHEN 500 MG TAB PO SCH ×3 (06:40→22:25)
[2022-07-15] MEDS: PANTOprazole 40 MG TAB PO SCH (08:00)
[2022-07-15] MEDS ORDERED: INSULIN HUMAN NPH SC SCH ×2 (08:00→16:30)
[2022-07-15] MEDS: GABAPENTIN 300 MG CAP PO SCH ×3 (08:01→21:07)
[2022-07-15] MEDS: ASPIRIN 81 MG ECTAB PO SCH ×2 (08:01→21:07)
[2022-07-15] MEDS: MULTIVITAMIN TAB PO SCH (08:01)
[2022-07-15] MEDS: DOCUSATE SODIUM 100 MG CAP PO SCH ×2 (08:02→21:06)
[2022-07-15 08:10] LABS: Basophils # (auto) 0.04 K/uL (0-0.2); Basophils % (auto) 0.5 %; Eosinophils # (auto) 0.24 K/uL (0-0.50); Eosinophils % (auto) 3.3 %; Hematocrit (blood only) 26.2 % (34.1-44.9); Hemoglobin 8.1 g/dl (12.0-16.0); Immature Granulocytes # (auto) 0.02 K/uL (0.00-0.02); Immature Granulocytes % (auto) 0.3 %; Lymphocytes % (auto) 28.5 %; Mean Corpuscular Hemoglobin 26.5 pg (25.0-34.0); Mean Corpuscular Hgb Conc 30.9 g/dL (32.0-36.0); Mean Corpuscular Volume 85.6 fL (80.0-100.0); Mean Platelet Volume 9.4 fL (9.4-12.3); Monocytes # (auto) 0.47 K/uL (0.24-0.82); Monocytes % (auto) 6.4 %; Neutrophils # (auto) 4.49 K/uL (1.4-6.5); Platelet Count 288 K/uL (130-400); RDW Coefficient of Variation 14.8 % (11.5-14.5); Red Blood Count 3.06 M/uL (3.93-5.22); White Blood Count 7.36 K/ul (4.8-10.8)
[2022-07-15 08:52] LABS: Creatinine Clr Calc Pharmacy 20.4 ml/min; Est GFR (African American) 26.7 ml/min; Est GFR (Non-African American) 23.1 ml/min
[2022-07-15] MEDS: INSULIN ASPART PER UNIT SC SCH ×4 (09:02→22:14)
--- NOTE | 2022-07-15 09:05 | Orthopedic Progress Note ---
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 Right ankle removal of infected retrocalcaneal nail deep bone hardware. 2. Irrigation and debridement of medial tibial ulcer 1.4 cm diameter x 0.7 cm. This including skin, dermis, fascia and periosteum. 3. Irrigation and debridement of medial tibial ulcer 1.5 cm diameter x 0.7 cm including skin, dermis, fascia and periosteum. 4. Implantation of Stimulan antibiotic beads, tibia/talus/calcaneus, right. -PT/OT: Nonweightbearing right lower extremity -Pain management as written -DVT prophylaxis: SCDs, aspirin 81 mg twice daily -AM labs: Hemoglobin is Stable at 8.1 this morning. Acute blood loss anemia likely due to dilutional versus surgical loss.Patient is asymptomatic. Gram stain from OR with rare WBCs, no organisms. Cultures with pinpoint growth. -Continue IV antibiotics. On IV Vanco pending culture results. Admission and Anticipated Discharge Date Admission Date: July 13, 2022 Subjective Patient is postop day #2. She feels well this morning. Pain minimal. No other complaints. Review of Systems Review of Systems: All systems reviewed & are unremarkable except as noted in Subjective Physical Exam Physical Exam: Right foot dressing is clean, dry, intact. Toes are mobile. Sensation decreased. Cap refill less than 3 seconds. No calf tenderness. Dressing was removed. Posterior medial ankle incision with mild maceration and mild bloody drainage. No purulence. Plantar calcaneal incision appears benign without any drainage. Ulceration posterior aspect of her ankle without any drainage or erythema. Anterior tibial wounds with mild maceration. Mild bloody drainage. No purulence. No surrounding cellulitis. New dressing was applied with a Ortho-Glass posterior splint. Constitutional: WD/WN, vitals as above Results & Data ([facility]) Vital Signs (Past 12 Hours) Vital Signs Temp Pulse Resp BP Pulse Ox O2 Del Method 07/15/22 07:12 36.7 C 81 16 135/72 93 Room Air 07/14/22 21:39 36.9 C 72 16 145/76 H 98 Room Air
[2022-07-15] MEDS ORDERED: CEFEPIME 2,000 MG in SYRINGE 0 ML IV STA (09:58)
--- NOTE | 2022-07-15 14:29 | Pharmacy Report ---
Pharmacy Glycemic Short Note 2 - Date of Service July 15, 2022 - Glycemic Short BSG Results (Last 24 hours): 07/14/22 07/14/22 07/14/22 17:01 20:47 20:49 POC Glucose 92 48 L* 48 L* 07/14/22 07/14/22 07/14/22 21:13 21:37 21:59 POC Glucose 68 L* 69 L* 88 07/15/22 07/15/22 08:00 12:14 POC Glucose 190 H 176 H OUTPATIENT ANTIDIABETIC REGIMEN: * Novolin 70/30- 22 - 28 units BID * metformin 500 mg PO BID * HbA1C ordered ASSESSMENT: 07/15/22 * Patient's BSGs yesterday were 104-164-55-48 * Patient received 38 units of insulin yesterday (24 units of basal and 12 units of bolus). * Decrease basal by 50% due to hypoglycemic event. * Loosen CF since hypoglycemic episode happened after inrange BSG. BACKGROUND * Ms Tomlin is a 76 y/o F with a PMH of T2DM who presents for ankle surgery. * BSGs yesterday (POD 0) were 151-136-168 mg/dL. * Patient received no dexamethasone during surgery. * Fasting today is 120 mg/dL. * Will start NPH 12 units BID + Novolog weight-based stress of 3. The NPH dosing is weight-based stress of 2 plus represents about half of her outpatient 70/30 dosing. PLAN FOR INPATIENT GLYCEMIC CONTROL: * Hold outpatient oral diabetes medications * Basal insulin * NPH 8 units SQ qAm and 5 units qPM * Bolus insulin * NovoLog per scale ACHS or Q6hrs while NPO * Goal Range: Low 110 mg/dL - High 140 mg/dL * Correction Factor: 30 mg/dL/unit * Nutritional / Prandial insulin per carb ratio of 1 unit per 8 grams CHO consumed
[2022-07-15] MEDS: CARBOHYDRATES FOR HYPOGLYCEMIA PO PRN (17:15)
--- NOTE | 2022-07-15 18:51 | Hospitalist Progress Note ---
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 Wallis -pre op Cephazolin, now on vancomycin, inital gram stain negative - VTE prophylaxis surgery has opted for aspirin 81 mg bid - PT/OT post operative acute blood loss anemia stable remains above 8 g (2) Stroke: Plan: History of CVA 2021, thought to be cardioembolic in nature with loop recorder in place - ASA as above restart - She is on every other day rosuvastatin - (3) HTN (hypertension): Plan: Usually well controlled per patient - previously was on Amlodipine but since has been discontinued - Notify if > 180 or symptoms (4) Anxiety: Plan: Follow - no acute needs (5) History of GI bleed: Plan: Continue PPI (6) Diabetes mellitus, type 2: Plan: Glycemic pharmacy consulted, basal insulin nph plus ssi pt has Chronic kidney disease stage 3 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 (7) Carotid artery disease: Plan: <50% on right none on left - continue statin - (8) Acute kidney injury: Plan: Elevation of creatinine postoperatively in the face of acute vancomycin use. We will hydrate the patient with Normosol for additional liter and follow labs in the morning. 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
[2022-07-15] MEDS ORDERED: NORMOSOL-R 1,000 ML IV SCH (19:00)
[2022-07-15] MEDS: ADVANCED PROBIOTIC 1250 MG CAPSULE PO SCH (21:07)
[2022-07-15] MEDS: SENNA 8.6 MG TAB PO SCH (21:07)
[2022-07-15] MEDS: ROSUVASTATIN CALCIUM 5 MG TAB PO SCH (21:07)
[2022-07-15] MEDS: CEFEPIME 1,000 MG in SYRINGE 0 ML IV SCH (22:25)
[2022-07-16] MEDS: ACETAMINOPHEN 500 MG TAB PO SCH ×3 (05:45→21:18)
[2022-07-16 07:39] LABS: Estimated Average Glucose 163 mg/dl; Hemoglobin A1C 7.3 % (4.5-5.6)
--- NOTE | 2022-07-16 07:49 | Hospitalist Progress Note ---
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 Wallis -pre op Cefazolin, was on Vancomycin IV Cx with PSEUDOMONAS (intermediate to Levofloxacin -- states she was on levaquin x 5 months prior) Switched to Cefepime IV per primary service to cover for such -- could consider Ciprofloxacin at d/c Hgb 8.2--> 8.3, post op acute blood loss anemia in patient with appearing chronic anemia Pain control, bowel regimen per primary Cr 1.92 -- did get 2L IVF overnight, encouraged to push PO fluids but will order 500cc NSS prior to d/c repeat labs for this afternoon DVT Prophylaxis --> ASA 81mg BID PT/OT ordered, for home with home health Will check iron panel with AM labs (also add B12 given on metformin and anemia w/ hgb in 8s) --> replacement if needed given CKD , consider d/c meformin at d/c and f/u PCP for DM management Per patient, hopeful for discharge later today --> repeat labs for 13:00 to ensure Cr improved (2) Stroke: Plan: History of CVA 2021, thought to be cardioembolic in nature with loop recorder in place - ASA as above restart - She is on every other day rosuvastatin (3) HTN (hypertension): Plan: Usually well controlled per patient, currently 160/65 - previously was on Amlodipine but since has been discontinued - Notify if > 180 or symptoms (4) Anxiety: Plan: Follow - no acute needs (5) History of GI bleed: Plan: Continue PPI (6) Diabetes mellitus, type 2: Plan: A1c 7.3 Glycemic pharmacy consulted while inpatient basal insulin nph plus ssi BSGs acceptable pt has Chronic kidney disease stage 3 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, Given CKD 3-4, eGFR in 20s, metformin not ideal medication (also checking iron panel as above/add B12 as ?worsening CKD 2nd to anemia) Would recommend close f/u PCP at discharge to work on insulin regimen as metformin not ideal choice for her (7) Carotid artery disease: Plan: <50% on right none on left - continue statin (8) Acute kidney injury: Plan: Cr up to 2.03, with baseline ~1.6-1.9 Given Normosol overnight, Cr improved to 1.92 Ordered additional 500cc x 1 for today, repeat labs this afternoon along with iron panel given baseline anemia If stable/not worse ok for d/u and f/u PCP outpatient Plan Consider fluoroquinolone PO at d/c given cx with pseudomonas, pansensitive except intermediate to Levaquin ORdered 500cc NSS and repeat BMP this afternoon given Cr 1.92, also checking iron panel/B12 Recommend discontinuing use metformin at d/c and f/u PCP regarding DM management given CKD Will check labs this afternoon but if stable, likely ok for discharge per primary service. Please call with any questions/concerns Admission and Anticipated Discharge Date Admission Date: July 13, 2022 Subjective Patient evaluated this morning Doing well Pain well controlled Eating/drinking, worked with therapy She is hopeful to be going home today Discussed cultures with pseudomonas and abx were switched last night. She states she had pseudomonas in the past and completed five weeks of Cipro last year prior to surgery and she did not have home IV antibiotics at that time. Review of Systems Review of Systems: All systems reviewed & are unremarkable except as noted in HPI & below Physical Exam Physical Exam: General: WD/WN female sitting up in chair, NAD, general pallor noted HEENT: head normocephalic, atraumatic, mm slightly dry, trachea midline, no deviation Resp: CTAB, no w/c/r, on room air CV: RRR, +faint systolic murmur, no r/g, no pitting edema/calf tenderness, cap refill < 3 seconds GI: +BS, soft, nontender : no betts MSK/Neuro: splint with aydin wrap to RLE, cap refill wnl, toes mobile, NVI, posterior ulceration to ankle without drainage/erythema, nontender LLE no edema, no calf tenderness strength intact bilaterally Psych: AOx3, pleasant and cooperative Skin: cool, dry (see above under MSK) Constitutional: WD/WN, vitals as above Results & Data Results & Data ([facility]) Vital Signs (Past 12 Hours) Vital Signs Temp Pulse Resp BP Pulse Ox O2 Del Method 07/16/22 07:13 36.3 C L 56 L 16 160/65 H 97 Room Air 07/16/22 06:49 177/76 H 07/15/22 22:03 36.5 C 76 18 180/72 H 98 Room Air Laboratory Results 07/16/22 07/16/22 07/16/22 Range/Units 08:11 06:55 06:55 WBC 6.40 (4.8-10.8) K/ul RBC 3.12 L (3.93-5.22) M/uL Hgb 8.3 L (12.0-16.0) g/dl Hct 26.5 L (34.1-44.9) % MCV 84.9 (80.0-100.0) fL MCH 26.6 (25.0-34.0) pg MCHC 31.3 L (32.0-36.0) g/dL RDW Std Deviation 45.6 (36.4-46.3) fL RDW Coeff of Osvaldo 14.8 H (11.5-14.5) % Plt Count 329 (130-400) K/uL MPV 9.8 (9.4-12.3) fL Sodium (136-145) mmol/L Potassium (3.5-5.1) mmol/L Chloride (98-107) mmol/L Carbon Dioxide (21-32) mmol/L Anion Gap (3-11) BUN (6-23) mg/dl Creatinine (0.6-1.2) mg/dl Est Cr Clr Drug Dosing ml/min Est GFR ( Amer) ml/min Est GFR (Non-Af Amer) ml/min BUN/Creatinine Ratio (10-20) Glucose (70-99(Fasting)) mg/dl POC Glucose 163 H (70-99) mg/dl Estimat Average Glucose mg/dl Hemoglobin A1c (4.5-5.6) % Calcium (8.5-10.1) mg/dl Iron 34 L (35-150) mcg/dl TIBC 214 L (250-450) mcg/dl Unsaturated IBC 180 (155-355) mcg/dl Transferrin % Sat 16 (15-50) % Ferritin Pending 07/16/22 07/15/22 07/15/22 Range/Units 06:55 20:38 17:32 WBC (4.8-10.8) K/ul RBC (3.93-5.22) M/uL Hgb (12.0-16.0) g/dl Hct (34.1-44.9) % MCV (80.0-100.0) fL MCH (25.0-34.0) pg MCHC (32.0-36.0) g/dL RDW Std Deviation (36.4-46.3) fL RDW Coeff of Osvaldo (11.5-14.5) % Plt Count (130-400) K/uL MPV (9.4-12.3) fL Sodium 143 (136-145) mmol/L Potassium 4.8 (3.5-5.1) mmol/L Chloride 112 H (98-107) mmol/L Carbon Dioxide 26 (21-32) mmol/L Anion Gap 5 (3-11) BUN 34 H (6-23) mg/dl Creatinine 1.92 H (0.6-1.2) mg/dl Est Cr Clr Drug Dosing 21.6 ml/min Est GFR ( Amer) 28.6 ml/min Est GFR (Non-Af Amer) 24.7 ml/min BUN/Creatinine Ratio 17.7 (10-20) Glucose 137 H (70-99(Fasting)) mg/dl POC Glucose 117 H 81 (70-99) mg/dl Estimat Average Glucose mg/dl Hemoglobin A1c (4.5-5.6) % Calcium 9.4 (8.5-10.1) mg/dl Iron (35-150) mcg/dl TIBC (250-450) mcg/dl Unsaturated IBC (155-355) mcg/dl Transferrin % Sat (15-50) % Ferritin 07/15/22 07/15/22 07/15/22 Range/Units 17:13 17:07 12:14 WBC (4.8-10.8) K/ul RBC (3.93-5.22) M/uL Hgb (12.0-16.0) g/dl Hct (34.1-44.9) % MCV (80.0-100.0) fL MCH (25.0-34.0) pg MCHC (32.0-36.0) g/dL RDW Std Deviation (36.4-46.3) fL RDW Coeff of Osvaldo (11.5-14.5) % Plt Count (130-400) K/uL MPV (9.4-12.3) fL Sodium (136-145) mmol/L Potassium (3.5-5.1) mmol/L Chloride (98-107) mmol/L Carbon Dioxide (21-32) mmol/L Anion Gap (3-11) BUN (6-23) mg/dl Creatinine (0.6-1.2) mg/dl Est Cr Clr Drug Dosing ml/min Est GFR ( Amer) ml/min Est GFR (Non-Af Amer) ml/min BUN/Creatinine Ratio (10-20) Glucose (70-99(Fasting)) mg/dl POC Glucose 77 61 L* 176 H (70-99) mg/dl Estimat Average Glucose mg/dl Hemoglobin A1c (4.5-5.6) % Calcium (8.5-10.1) mg/dl Iron (35-150) mcg/dl TIBC (250-450) mcg/dl Unsaturated IBC (155-355) mcg/dl Transferrin % Sat (15-50) % Ferritin 07/15/22 Range/Units 07:45 WBC (4.8-10.8) K/ul RBC (3.93-5.22) M/uL Hgb (12.0-16.0) g/dl Hct (34.1-44.9) % MCV (80.0-100.0) fL MCH (25.0-34.0) pg MCHC (32.0-36.0) g/dL RDW Std Deviation (36.4-46.3) fL RDW Coeff of Osvaldo (11.5-14.5) % Plt Count (130-400) K/uL MPV (9.4-12.3) fL Sodium (136-145) mmol/L Potassium (3.5-5.1) mmol/L Chloride (98-107) mmol/L Carbon Dioxide (21-32) mmol/L Anion Gap (3-11) BUN (6-23) mg/dl Creatinine (0.6-1.2) mg/dl Est Cr Clr Drug Dosing ml/min Est GFR ( Amer) ml/min Est GFR (Non-Af Amer) ml/min BUN/Creatinine Ratio (10-20) Glucose (70-99(Fasting)) mg/dl POC Glucose (70-99) mg/dl Estimat Average Glucose 163 mg/dl Hemoglobin A1c 7.3 H (4.5-5.6) % Calcium (8.5-10.1) mg/dl Iron (35-150) mcg/dl TIBC (250-450) mcg/dl Unsaturated IBC (155-355) mcg/dl Transferrin % Sat (15-50) % Ferritin PG Care Time/CCT Total # of Minutes Spent Total Time Spent with Patient: Total time spent is greater than 50% in coordination of care (as documented) at patient's floor/unit and/or counseling patient: Coding Level of Care Code 58925 Subseq Hosp Care Lvl 3 Diagnoses Infected hardware in right lower extremity T84.7XXA Stroke I63.9 HTN (hypertension) I10 Anxiety F41.9 History of GI bleed Z87.19 Diabetes mellitus, type 2 E11.9 Carotid artery disease I77.9 Acute kidney injury N17.9
[2022-07-16 07:50] LABS: BUN Creatinine Ratio 17.7 (10-20); Calcium 9.4 mg/dl (8.5-10.1); Creatinine Clr Calc Pharmacy 21.6 ml/min; Est GFR (African American) 28.6 ml/min; Est GFR (Non-African American) 24.7 ml/min; Potassium 4.8 mmol/L (3.5-5.1)
[2022-07-16] MEDS: PANTOprazole 40 MG TAB PO SCH (08:36)
[2022-07-16] MEDS: ASPIRIN 81 MG ECTAB PO SCH ×2 (08:36→21:20)
[2022-07-16] MEDS: MULTIVITAMIN TAB PO SCH (08:36)
[2022-07-16] MEDS: GABAPENTIN 300 MG CAP PO SCH ×3 (08:36→21:20)
[2022-07-16] MEDS: DOCUSATE SODIUM 100 MG CAP PO SCH ×2 (08:37→21:18)
[2022-07-16] MEDS: INSULIN ASPART PER UNIT SC SCH ×4 (08:39→21:16)
[2022-07-16] MEDS ORDERED: INSULIN HUMAN NPH SC ONE (08:45)
[2022-07-16 09:27] LABS: Hematocrit (blood only) 26.5 % (34.1-44.9); Hemoglobin 8.3 g/dl (12.0-16.0); Mean Corpuscular Hemoglobin 26.6 pg (25.0-34.0); Mean Corpuscular Hgb Conc 31.3 g/dL (32.0-36.0); Mean Corpuscular Volume 84.9 fL (80.0-100.0); Mean Platelet Volume 9.8 fL (9.4-12.3); Platelet Count 329 K/uL (130-400); RDW Coefficient of Variation 14.8 % (11.5-14.5); RDW Standard Deviation 45.6 fL (36.4-46.3); Red Blood Count 3.12 M/uL (3.93-5.22)
[2022-07-16] MEDS ORDERED: SODIUM CHLORIDE 0.9% 500 ML IV SCH (09:45)
[2022-07-16] MEDS: CEFEPIME 1,000 MG in SYRINGE 0 ML IV SCH ×2 (09:59→21:23)
[2022-07-16 10:03] LABS: Ferritin 48.8 ng/ml (8-388)
[2022-07-16 13:47] LABS: BUN Creatinine Ratio 17.3 (10-20); Calcium 9.7 mg/dl (8.5-10.1); Creatinine Clr Calc Pharmacy 20.5 ml/min; Est GFR (African American) 26.9 ml/min; Est GFR (Non-African American) 23.2 ml/min; Potassium 5.7 mmol/L (3.5-5.1)
[2022-07-16] MEDS ORDERED: SODIUM POLYSTYRENE SULFONATE 15G/60ML SUSP PO STA (16:42)
[2022-07-16] MEDS ORDERED: SODIUM CHLORIDE 0.9% 1000ML 500 ML IV SCH (17:00)
[2022-07-16] MEDS ORDERED: INSULIN HUMAN NPH SC SCH (17:00)
[2022-07-16] MEDS ORDERED: D5W AND NSS 500 ML IV SCH (17:00)
--- NOTE | 2022-07-16 17:12 | Orthopedic Progress Note ---
Date of Service July 16, 2022 Assessment & Plan (1) Infected hardware in right lower extremity: Plan: Postop day #3 PROCEDURES PERFORMED: 1. Right ankle removal of infected retrocalcaneal nail deep bone hardware. 2. Irrigation and debridement of medial tibial ulcer 1.4 cm diameter x 0.7 cm. This including skin, dermis, fascia and periosteum. 3. Irrigation and debridement of medial tibial ulcer 1.5 cm diameter x 0.7 cm including skin, dermis, fascia and periosteum. 4. Implantation of Stimulan antibiotic beads, tibia/talus/calcaneus, right. -PT/OT: Nonweightbearing right lower extremity -Pain management as written -DVT prophylaxis: SCDs, aspirin 81 mg twice daily -Continue IV cefepime twice daily. We will plan for PICC line placement and 6 weeks of IV antibiotics. PICC line order will be placed. Consent is on the front of the chart. Once home IV treatment is set up, the patient may be discharged home. She has an acquaintance that works for [employer] and she would like to have them take care of her IV antibiotics. -We discussed every other day dressing changes when she is home. She will follow-up in our [facility] in approximately 2 weeks. Admission and Anticipated Discharge Date Admission Date: July 13, 2022 Subjective Doing well today. No complaints of the right lower extremity. Has been mostly nonweightbearing. Physical Exam Constitutional: well developed and well nourished; no acute distress ENMT: external ear and nose normal, oropharynx normal Neck: trachea midline Respiratory: normal respiratory effort, lungs clear to auscultation Cardiovascular: Rate/Rhythm: regular rate and regular rhythm Gastrointestinal (Abdomen): normal bowel sounds, soft, nontender, no hepatosplenomegaly Musculoskeletal: Ankle: + skin erythema (Improving right lower extremity) and + limited ROM of ankle (Right pantalar fusion); no ecchymosis Minimal erythema right lower extremity around the wounds. Plantar heel incision and lateral ankle incision are well approximated. The medial distal tibia incisions are loosely approximated with mild serosanguineous drainage. Skin: no rashes, warm and dry Neurologic: + abnormal touch/pain/proprioception (Decree sensation bilateral lower extremities) Psychiatric: A+Ox3, euthymic affect Speech: normal rate/rhythm/volume of speech Lymphatic: no cervical or axillary lymphadenopathy Results & Data ([facility]) Vital Signs (Past 12 Hours) Vital Signs Temp Pulse Resp BP Pulse Ox O2 Del Method 07/16/22 15:32 36.6 C 64 16 170/64 H 95 Room Air 07/16/22 07:13 36.3 C L 56 L 16 160/65 H 97 Room Air 07/16/22 06:49 177/76 H
[2022-07-16] MEDS: SENNA 8.6 MG TAB PO SCH (21:18)
[2022-07-16] MEDS: ADVANCED PROBIOTIC 1250 MG CAPSULE PO SCH (21:19)
[2022-07-17] MEDS: ACETAMINOPHEN 500 MG TAB PO SCH ×3 (05:20→21:51)
[2022-07-17 06:25] LABS: Hematocrit (blood only) 26.6 % (34.1-44.9); Hemoglobin 8.4 g/dl (12.0-16.0); Mean Corpuscular Hemoglobin 26.6 pg (25.0-34.0); Mean Corpuscular Hgb Conc 31.6 g/dL (32.0-36.0); Mean Corpuscular Volume 84.2 fL (80.0-100.0); Mean Platelet Volume 9.4 fL (9.4-12.3); Platelet Count 339 K/uL (130-400); RDW Coefficient of Variation 14.7 % (11.5-14.5); RDW Standard Deviation 45.3 fL (36.4-46.3); Red Blood Count 3.16 M/uL (3.93-5.22); White Blood Count 8.16 K/ul (4.8-10.8)
[2022-07-17 07:05] LABS: Albumin Globulin Ratio 0.8 (0.9-2); Albumin Level 3.1 gm/dl (3.4-5.0); BUN Creatinine Ratio 16.9 (10-20); Bilirubin,Total 0.2 mg/dl (0.2-1.0); Creatinine Clr Calc Pharmacy 18.4 ml/min; Est GFR (African American) 23.6 ml/min; Est GFR (Non-African American) 20.4 ml/min; Globulin 3.7 gm/dl (2.5-4.0); Magnesium 1.6 mg/dl (1.7-2.4); Potassium 4.7 mmol/L (3.5-5.1); Total Protein 6.8 gm/dl (6.0-8.3)
[2022-07-17] MEDS ORDERED: amLODIPine BESYLATE 5 MG TAB PO ONE (07:55)
--- NOTE | 2022-07-17 07:59 | Hospitalist Progress Note ---
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 Wallis -pre op Cefazolin, was on Vancomycin IV Cx with PSEUDOMONAS (intermediate to Levofloxacin -- states she was on levaquin x 5 months prior) Switched to Cefepime IV per primary service to cover for such Per primary service, plans for Cefepime IV Q12H, would need to be 1gm Q12 based on renal function x 6 weeks. Will need weekly labs while on such PICC line ordered by primary service Hgb 8.2--> 8.4, post op acute blood loss anemia in patient with appearing chronic anemia Pain control, bowel regimen per primary Cr 1.92 -- did get 3L total since 07/15, Cr 2.25 -?post-op hypotension likely contributed -Appears not much above her baseline, never followed with nephrology -Has been tolerating PO -Iron panel not significant anemia, B12 wnl -Vanco trough was elevated (initially on such, could have sustained acute kidney injury from such) -Decreased gabapentin to 300mg BID based on renal function -- would continue lower dose at charge. changed on d/c med list and discussed with patient to reduce to BID for now Given patient on metformin 500mg BID (A1c 7.3), would recommend AGAINST continued metformin use at discharge -- would rec f/u PCP outpatient to discuss increasing her insulin instead. Discussed with patient. Will dc from dc med list. 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 with loop recorder in place - ASA as above restart - She is on every other day rosuvastatin (3) HTN (hypertension): Plan: Usually well controlled per patient - previously was on Amlodipine but since has been discontinued -- will give dose 2.5mg x 1 now, however could be related to pain with elevation 191/74 this morning (asymptomatic from such) Follow up PCP outpatient if remains elevated at home (4) Anxiety: Plan: Follow - no acute needs (5) History of GI bleed: Plan: Continue PPI checked mag, low 1.6, 2gm IV replacement ordered tightened ISS given elevations in BSGs (6) Diabetes mellitus, type 2: Plan: A1c 7.3 Glycemic pharmacy consulted while inpatient basal insulin nph plus ssi BSGs acceptable pt has Chronic kidney disease stage 3 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, Given CKD 3-4, eGFR in 20s, metformin not ideal medication Would recommend close f/u PCP at discharge to work on insulin regimen as metformin not ideal choice for her. Discussed with patient and to monitor sugars at home/close f/u PCP (7) Carotid artery disease: Plan: <50% on right none on left - continue statin QOD (8) Acute kidney injury: Plan: Cr up to 2.03, with baseline ~1.9 Given IVF, Cr 2.25 As above, was on vanco, also now on cefepime which can cause issues decreased gabapentin as above, would rec for discontinuing metformin at discharge and following up with PCP regarding DM management (9) Hyperkalemia: Plan: K elevated on afternoon labs, ?error given kayexalate and 500cc NSS 07/16 Repeat K wnl weekly labs on meds as above Plan plans for d/c on IV Cefepime per primary service, awaiting PICC line and home abx to be arranged by CM. will need weekly labs, rec discontinue metformin, sending on reduced gabapentin given CKD and follow up with nephrology hospitalist will follow along with chart checks if remains inpatient. please call with questions/concerns Admission and Anticipated Discharge Date Admission Date: July 13, 2022 Subjective Patient evaluated this morning Doing well Eating/drinking, moving bowels Has not yet had PICC line placed but planning for IV abx at discharge. Her SHARON coming over after working at [employer] if able to discharge today she will take her home. Discussed would need to make sure abx arranged and PICC line in place and home abx arranged prior to discharge but if able to occur today will possibly discharge at discretion of primary service. Discussed elevated BSGs this morning, prior had been low. Discussed likely from mag IV replacement as ordered this morning, will tighten ISS for meantime. Also discussed decreasing her gabapentin to BID given renal function as well as metformin not being ideal choice for her given her CKD. She states she was told that previously by DM educator. Discussed would rec f/u PCP and increase her insulin use and as she has never followed with Nephrology, would recommend she have referral with her PCP for such. Questions/concerns addressed. Review of Systems Review of Systems: All systems reviewed & are unremarkable except as noted in HPI & below Physical Exam Physical Exam: General: WD/WN female sitting up in bed, NAD, general pallor noted HEENT: head normocephalic, atraumatic, mmm, trachea midline, no deviation Resp: CTAB, no w/c/r, on room air CV: RRR, +faint systolic murmur, no r/g, no pitting edema/calf tenderness, cap refill < 3 seconds GI: +BS, soft, nontender : no betts MSK/Neuro: splint with prachi wrap to RLE, cap refill wnl, toes mobile, NVI, posterior ulceration to ankle without drainage/erythema, nontender (dressing not removed today) LLE no edema, no calf tenderness strength intact bilaterally Psych: AOx3, pleasant and cooperative Skin: cool, dry (see above under MSK) Results & Data Results & Data ([facility]) Vital Signs (Past 12 Hours) Vital Signs Temp Pulse Resp BP BP Pulse Ox O2 Del Method 07/17/22 07:22 36.6 C 67 16 191/74 H 95 Room Air 07/16/22 20:48 36.7 C 74 16 167/76 H 97 Room Air Laboratory Results 07/17/22 07/17/22 07/17/22 Range/Units 08:09 05:50 05:50 WBC 8.16 (4.8-10.8) K/ul RBC 3.16 L (3.93-5.22) M/uL Hgb 8.4 L (12.0-16.0) g/dl Hct 26.6 L (34.1-44.9) % MCV 84.2 (80.0-100.0) fL MCH 26.6 (25.0-34.0) pg MCHC 31.6 L (32.0-36.0) g/dL RDW Std Deviation 45.3 (36.4-46.3) fL RDW Coeff of Osvaldo 14.7 H (11.5-14.5) % Plt Count 339 (130-400) K/uL MPV 9.4 (9.4-12.3) fL Sodium 140 (136-145) mmol/L Potassium 4.7 (3.5-5.1) mmol/L Chloride 110 H (98-107) mmol/L Carbon Dioxide 23 (21-32) mmol/L Anion Gap 7 (3-11) BUN 38 H (6-23) mg/dl Creatinine 2.25 H (0.6-1.2) mg/dl Est Cr Clr Drug Dosing 18.4 ml/min Est GFR ( Amer) 23.6 ml/min Est GFR (Non-Af Amer) 20.4 ml/min BUN/Creatinine Ratio 16.9 (10-20) Glucose 199 H (70-99(Fasting)) mg/dl POC Glucose 275 H (70-99) mg/dl Calcium 9.0 (8.5-10.1) mg/dl Magnesium 1.6 L (1.7-2.4) mg/dl Ferritin (8-388) ng/ml Total Bilirubin 0.2 (0.2-1.0) mg/dl AST 14 (13-39) U/L ALT 10 (7-52) U/L Alkaline Phosphatase 55 (34-104) U/L Total Protein 6.8 (6.0-8.3) gm/dl Albumin 3.1 L (3.4-5.0) gm/dl Globulin 3.7 (2.5-4.0) gm/dl Albumin/Globulin Ratio 0.8 L (0.9-2) Vitamin B12 (180-914) pg/ml 07/16/22 07/16/22 07/16/22 Range/Units 20:46 17:08 12:49 WBC (4.8-10.8) K/ul RBC (3.93-5.22) M/uL Hgb (12.0-16.0) g/dl Hct (34.1-44.9) % MCV (80.0-100.0) fL MCH (25.0-34.0) pg MCHC (32.0-36.0) g/dL RDW Std Deviation (36.4-46.3) fL RDW Coeff of Osvaldo (11.5-14.5) % Plt Count (130-400) K/uL MPV (9.4-12.3) fL Sodium (136-145) mmol/L Potassium (3.5-5.1) mmol/L Chloride (98-107) mmol/L Carbon Dioxide (21-32) mmol/L Anion Gap (3-11) BUN (6-23) mg/dl Creatinine (0.6-1.2) mg/dl Est Cr Clr Drug Dosing ml/min Est GFR ( Amer) ml/min Est GFR (Non-Af Amer) ml/min BUN/Creatinine Ratio (10-20) Glucose (70-99(Fasting)) mg/dl POC Glucose 160 H 106 H (70-99) mg/dl Calcium (8.5-10.1) mg/dl Magnesium (1.7-2.4) mg/dl Ferritin (8-388) ng/ml Total Bilirubin (0.2-1.0) mg/dl AST (13-39) U/L ALT (7-52) U/L Alkaline Phosphatase (34-104) U/L Total Protein (6.0-8.3) gm/dl Albumin (3.4-5.0) gm/dl Globulin (2.5-4.0) gm/dl Albumin/Globulin Ratio (0.9-2) Vitamin B12 434 (180-914) pg/ml 07/16/22 07/16/22 07/16/22 Range/Units 12:49 12:00 06:55 WBC (4.8-10.8) K/ul RBC (3.93-5.22) M/uL Hgb (12.0-16.0) g/dl Hct (34.1-44.9) % MCV (80.0-100.0) fL MCH (25.0-34.0) pg MCHC (32.0-36.0) g/dL RDW Std Deviation (36.4-46.3) fL RDW Coeff of Osvaldo (11.5-14.5) % Plt Count (130-400) K/uL MPV (9.4-12.3) fL Sodium 139 (136-145) mmol/L Potassium 5.7 H (3.5-5.1) mmol/L Chloride 108 H (98-107) mmol/L Carbon Dioxide 27 (21-32) mmol/L Anion Gap 4 (3-11) BUN 35 H (6-23) mg/dl Creatinine 2.02 H (0.6-1.2) mg/dl Est Cr Clr Drug Dosing 20.5 ml/min Est GFR ( Amer) 26.9 ml/min Est GFR (Non-Af Amer) 23.2 ml/min BUN/Creatinine Ratio 17.3 (10-20) Glucose 223 H (70-99(Fasting)) mg/dl POC Glucose 246 H (70-99) mg/dl Calcium 9.7 (8.5-10.1) mg/dl Magnesium (1.7-2.4) mg/dl Ferritin 48.8 (8-388) ng/ml Total Bilirubin (0.2-1.0) mg/dl AST (13-39) U/L ALT (7-52) U/L Alkaline Phosphatase (34-104) U/L Total Protein (6.0-8.3) gm/dl Albumin (3.4-5.0) gm/dl Globulin (2.5-4.0) gm/dl Albumin/Globulin Ratio (0.9-2) Vitamin B12 (180-914) pg/ml PG Care Time/CCT Total # of Minutes Spent Total Time Spent with Patient: Total time spent is greater than 50% in coordination of care (as documented) at patient's floor/unit and/or counseling patient: Coding Level of Care Code 57373 Subseq Hosp Care Lvl 3 Diagnoses 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
[2022-07-17] MEDS ORDERED: INSULIN HUMAN NPH SC SCH (08:00)
[2022-07-17] MEDS: GABAPENTIN 300 MG CAP PO SCH ×2 (10:07→21:51)
[2022-07-17] MEDS: ASPIRIN 81 MG ECTAB PO SCH ×2 (10:07→21:51)
[2022-07-17] MEDS: MULTIVITAMIN TAB PO SCH (10:08)
[2022-07-17] MEDS: PANTOprazole 40 MG TAB PO SCH (10:08)
[2022-07-17] MEDS: INSULIN ASPART PER UNIT SC SCH ×4 (10:09→21:10)
[2022-07-17] MEDS: DOCUSATE SODIUM 100 MG CAP PO SCH ×2 (10:09→21:48)
[2022-07-17] MEDS: CEFEPIME 1,000 MG in SYRINGE 0 ML IV SCH ×2 (10:15→13:52)
[2022-07-17] MEDS: MAGNESIUM SULFATE / D5W 1 GM/100 ML BAG IV SCH ×2 (10:19→13:53)
--- NOTE | 2022-07-17 12:51 | Orthopedic Progress Note ---
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 Right ankle removal of infected retrocalcaneal nail deep bone hardware. 2. Irrigation and debridement of medial tibial ulcer 1.4 cm diameter x 0.7 cm. This including skin, dermis, fascia and periosteum. 3. Irrigation and debridement of medial tibial ulcer 1.5 cm diameter x 0.7 cm including skin, dermis, fascia and periosteum. 4. Implantation of Stimulan antibiotic beads, tibia/talus/calcaneus, right. -PT/OT: Nonweightbearing right lower extremity -Pain management as written -DVT prophylaxis: SCDs, aspirin 81 mg twice daily -Continue IV cefepime twice daily. We will plan for PICC line placement and 6 weeks of IV antibiotics. PICC line order placed. Consent signed. I have spoken to pharmacy about her cefepime dosing. Once her PICC line has been placed we can run her cefepime dose early today for her to be possibly discharged to home today. She has an acquaintance that works for [employer] and she would like to have them take care of her IV antibiotics. -It was discussed for her to have every other day dressing changes when she is home. Addendum: Discussed with Dr. Wallis. Patient staying for one more night. Plan to dc in early AM to get home in time for her 10AM dose of Cefipime. Per Dr. Wallis, continue Cefepime at this time. Follow up in clinic in 10-14 days. Admission and Anticipated Discharge Date Admission Date: July 13, 2022 Subjective Postop day 4 Patient is sitting up in bed awake and alert eating lunch. No complaints today. Discussed plans for PICC line of which she knew about and antibiotics. Patient signed consent for PICC line. Physical Exam Physical Exam: Splint/dressings are clean, dry, and intact. Dressings left intact. History of neuropathy of lower extremities. Results & Data ([facility]) Vital Signs (Past 12 Hours) Vital Signs Temp Pulse Resp BP Pulse Ox O2 Del Method 07/17/22 07:22 36.6 C 67 16 191/74 H 95 Room Air
--- NOTE | 2022-07-17 14:44 | Pharmacy Report ---
Pharmacy Glycemic Short Note 2 - Date of Service July 17, 2022 - Glycemic Short BSG Results (Last 24 hours): 07/16/22 07/16/22 07/17/22 17:08 20:46 05:50 Glucose 199 H POC Glucose 106 H 160 H 07/17/22 07/17/22 08:09 12:16 Glucose POC Glucose 275 H 264 H OUTPATIENT ANTIDIABETIC REGIMEN: * Novolin - 22 - 28 units BID * metformin 500 mg PO BID HbA1c: 7.3% (07/15/22) ASSESSMENT: 07/17/22 * BSGs continue with trend of elevated lunchtime BSGs and lower dinnertime BSG * Will tighten AM Novolog today and loosen lunchtime parameters to decrease risk of hypoglycemia at dinner * Fasting BSG elevated this morning, will increase NPH today * Possible d/c tomorrow 07/15/22 * Patient's BSGs yesterday were [phone] * Patient received 38 units of insulin yesterday (24 units of basal and 12 units of bolus). * Decrease basal by 50% due to hypoglycemic event. * Loosen CF since hypoglycemic episode happened after inrange BSG. BACKGROUND * Ms Tomlin is a 76 y/o F with a PMH of T2DM who presents for ankle surgery. * BSGs yesterday (POD 0) were 151-136-168 mg/dL. * Patient received no dexamethasone during surgery. * Fasting today is 120 mg/dL. * Will start NPH 12 units BID + Novolog weight-based stress of 3. The NPH dosing is weight-based stress of 2 plus represents about half of her outpatient dosing. PLAN FOR INPATIENT GLYCEMIC CONTROL: * Hold outpatient oral diabetes medications * Basal insulin * NPH 6 units SC with breakfast, 8 units SC with dinner * Bolus insulin * NovoLog per scale ACHS or Q6hrs while NPO * Goal Range: Low 110 mg/dL - High 140 mg/dL * Correction Factor: 20 mg/dL/unit with breakfast, 40 mg/dL/unit with lunch, and 30 mg/dL/unit with dinner and at bedtime * Nutritional / Prandial insulin per carb ratio of 1 unit per 7 grams CHO consumed with breakfast and 1 unit per 8 grams CHO consumed with lunch, dinner, and at bedtime
[2022-07-17] MEDS: INSULIN HUMAN NPH SC SCH (17:24)
[2022-07-17] MEDS: SENNA 8.6 MG TAB PO SCH (21:48)
[2022-07-17] MEDS: ROSUVASTATIN CALCIUM 5 MG TAB PO SCH (21:51)
[2022-07-17] MEDS: ADVANCED PROBIOTIC 1250 MG CAPSULE PO SCH (21:51)
[2022-07-18] MEDS: CEFEPIME 1,000 MG in SYRINGE 0 ML IV SCH (00:40)
[2022-07-18] MEDS: ACETAMINOPHEN 500 MG TAB PO SCH (05:55)
[2022-07-18] MEDS ORDERED: INSULIN ASPART PER UNIT SC SCH ×2 (07:30→11:30)
[2022-07-18] MEDS: INSULIN HUMAN NPH SC SCH (07:48)
[2022-07-18 07:53] LABS: BUN Creatinine Ratio 18.5 (10-20); Calcium 9.1 mg/dl (8.5-10.1); Creatinine Clr Calc Pharmacy 17.9 ml/min; Est GFR (African American) 22.8 ml/min; Est GFR (Non-African American) 19.6 ml/min; Potassium 4.2 mmol/L (3.5-5.1)
[2022-07-18] MEDS: ASPIRIN 81 MG ECTAB PO SCH (07:56)
--- NOTE | 2022-07-18 07:56 | Orthopedic Progress Note ---
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 Right ankle removal of infected retrocalcaneal nail deep bone hardware. 2. Irrigation and debridement of medial tibial ulcer 1.4 cm diameter x 0.7 cm. This including skin, dermis, fascia and periosteum. 3. Irrigation and debridement of medial tibial ulcer 1.5 cm diameter x 0.7 cm including skin, dermis, fascia and periosteum. 4. Implantation of Stimulan antibiotic beads, tibia/talus/calcaneus, right. -PT/OT: Nonweightbearing right lower extremity -Pain management as written -DVT prophylaxis: SCDs, aspirin 81 mg twice daily -Continue IV cefepime twice daily. We will plan for PICC line placement and 6 weeks of IV antibiotics. PICC line placed. She has an acquaintance that works for [employer] and she would like to have them take care of her IV antibiotics. Her next dose will be 10 AM today at home. -It was discussed for her to have every other day dressing changes when she is home. Patient understands. Discussed what she would need for her dressing changes. -Blood pressure somewhat elevated this morning. Discussed with medicine service will be checking in on her shortly. Plan for discharge to home today. Admission and Anticipated Discharge Date Admission Date: July 13, 2022 Subjective Postop day 5 Patient awake and alert this morning. No complaints this morning. Pain is controlled. Physical Exam Physical Exam: Splint and dressings removed. She has some slight erythema around her proximal wounds. No overt drainage. Suture line is intact. Plantar surface wound appears benign. She had some mild drainage noted on the dressing. No purulence noted. Minimal to no erythema. Wounds redressed and new splint applied. Results & Data ([facility]) Vital Signs (Past 12 Hours) Vital Signs Temp Pulse Resp BP Pulse Ox O2 Del Method 07/18/22 07:02 36.4 C L 18 98 Room Air 07/17/22 21:45 Room Air 07/17/22 20:42 36.7 C 67 16 163/66 H 96 Room Air
[2022-07-18] MEDS: DOCUSATE SODIUM 100 MG CAP PO SCH (07:57)
[2022-07-18] MEDS: PANTOprazole 40 MG TAB PO SCH (07:58)
[2022-07-18] MEDS: MULTIVITAMIN TAB PO SCH (07:58)
[2022-07-18] MEDS: GABAPENTIN 300 MG CAP PO SCH (07:58)
--- NOTE | 2022-07-18 08:56 | Communication Note ---
Date of Service: July 18, 2022 Saw patient as packed up and ready to go. Reminded her of reduced dose for her gabapentin to twice daily and DISCONTINUED her metformin and needs close follow up with PCP/Nephrology and recommended renal US and consideration for PRACHI/ARB after discussion with Nephrology and r/o and renal artery stenosis. She did have hx GI bleed in 2019 had egd/c-scope and reports this was from bleeding ulcers that were cauterized and she had been on BID protonix for a while but has been stable on once daily. She should follow up with GI if continued issues with anemia for further evaluation. 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 Discussed home health to check her labs twice a week to ensure kidney function stays stable but discussed restarting her amlodipine for better BP control given her CKD and this can be further titrated up pending BP readings at home/office. We also are recommending she have an arterial duplex to evaluate blood flow given ongoing infection to rule out any narrowing. Pulses were palpable on exam (slightly diminished) but has been undergoing abx therapy over the past year and it does appear had been on full strength augmentin and levaquin in the past, unsure what renal function was at that time, but antibiotics not dosed appropriately could have caused worsening of her renal function as well (was on vanco on admit). She should also have follow up with her anodic operator given medications on his list did include pletal, indicating some degree of PAD.
[2022-07-18] MEDS ORDERED: amLODIPine BESYLATE 5 MG TAB PO SCH ×2 (09:00)
--- NOTE | 2022-07-20 17:03 | Discharge Summary ---
Date of Service July 20, 2022 Admission HPI Per Admitting Provider This is a patient with a chronic history of right lower extremity ulcerations secondary to peripheral vascular disease. She previously had an equinus contracture which developed lateral ankle and foot ulcerations. Once the ulcerations had improved and resolved, she underwent a right pantalar fusion with retrocalcaneal nail. However, she has had issues with skin healing as well as recurrent ulcerations and infection of the right lower extremity. She was set up previously for removal of the hardware however went into acute renal failure. She is now medically stable and is being set up for surgical treatmen t. Admission Exam Per Admitting Provider Constitutional: well developed and well nourished; no acute distress ENMT: external ear and nose normal, oropharynx normal Neck: trachea midline Respiratory: normal respiratory effort, lungs clear to auscultation Cardiovascular: Rate/Rhythm: regular rate and regular rhythm Gastrointestinal (Abdomen): normal bowel sounds, soft, nontender, no hepatosplenomegaly Musculoskeletal: Ankle: + skin erythema (Right lower extremity near wounds) and + limited ROM of ankle (Right pantalar fusion); no ecchymosis Skin: no rashes, warm and dry + ulcer (Right anterior medial distal tibia, plantar heel) Neurologic: + abnormal touch/pain/proprioception (De danny sensation bilateral lower extremities) Psychiatric: A+Ox3, euthymic affect Speech: normal rate/rhythm/volume of speech Lymphatic: no cervical or axillary lymphadenopathy Principal Diagnosis Right foot/ankle infected hardware, non healing ulcerations Discharge Exam Splint and dressings removed. She has some slight erythema around her proximal wounds. No overt drainage. Suture line is intact. Plantar surface wound appears benign. She had some mild drainage noted on the dressing. No purulence noted. Minimal to no erythema. Wounds redressed and new splint applied. Constitutional WD/WN, vitals as above Discharge Data Allergies Allergy/AdvReac Type Severity Reaction Status Date / Time adhesive tape Allergy Severe SKIN GETS Verified 07/13/22 12:16 RAW-PAPER TAPE OK clindamycin Allergy Unknown Rash Verified 07/13/22 22:12 codeine Allergy Unknown Unknown Verified 07/13/22 12:16 Consultations 07/13/22 20:31 Consult Hospitalist Routine Procedures Performed Operation Date: 07/13/22 13:25 Actual Procedures p Right Ankle Removal of Retrocalcaneal Nail, Irrigation and Debridement Mid Tibial Ulcers Times Two (1 Centimeter diameter and 1.4 centimeter in diameter)(Right) - Luis Wallis DO s Implantation of Stimulan Antibiotic Beads(Right) - Luis Wallis DO Ordered Studies 07/13/22 13:25 FL ankle RT 2V Routine 07/13/22 15:48 US - OR guided needle placemen Routine Hospital Course (1) Infected hardware in right lower extremity: Postop day #5 PROCEDURES PERFORMED: 1. Right ankle removal of infected retrocalcaneal nail deep bone hardware. 2. Irrigation and debridement of medial tibial ulcer 1.4 cm diameter x 0.7 cm. This including skin, dermis, fascia and periosteum. 3. Irrigation and debridement of medial tibial ulcer 1.5 cm diameter x 0.7 cm including skin, dermis, fascia and periosteum. 4. Implantation of Stimulan antibiotic beads, tibia/talus/calcaneus, right. -PT/OT: Nonweightbearing right lower extremity -Pain management as written -DVT prophylaxis: SCDs, aspirin 81 mg twice daily -Continue IV cefepime twice daily. We will plan for PICC line placement and 6 weeks of IV antibiotics. PICC line placed. She has an acquaintance that works for [employer] and she would like to have them take care of her IV antibiotics. Her next dose will be 10 AM today at home. -It was discussed for her to have every other day dressing changes when she is home. Patient understands. Discussed what she would need for her dressing changes. -Blood pressure somewhat elevated this morning. Discussed with medicine service will be checking in on her shortly. Plan for discharge to home today. Spec: [id number] Collected: 07/13/22 Received: 07/13/[address]: Luis Wallis,D.O. Source: Leg,Right OV Order: Ordered: Aer/Tamiko Cult/Sm Comments: Comment 1. Right mid tibial screw hole Procedure Result Verified Site Gram Stain Final 07/14/22-740 Gram Stain Result Few WBCs Seen No Organisms Seen Aero/Tamiko Cult Final 07/18/22-1008 Organism 1 Pseudomonas aeruginosa Quantity Rare Sens Sensitivities to Follow No Anaerobes Isolated No Anaerobes Isolated P aerugino RX M.I.C. --- --------- Cefepime S 8 Ceftazidime S 4 Ciprofloxacin S 0.5 Gentamicin S <=4 Levofloxacin I 2 Meropenem S <=1 Tobramycin S <=4 Pip/Tazo S <=16 S = SENSITIVE I = INTERMEDIATE R = RESISTANT Name: SANIYA PADRON : 1945 PAGE 1 Printed: 07/20/22 [id number] END OF REPORT Lab Results 07/13/22 07/13/22 07/13/22 Range/Units 12:03 12:04 18:59 WBC (4.8-10.8) K/ul RBC (3.93-5.22) M/uL Hgb (12.0-16.0) g/dl Hct (34.1-44.9) % MCV (80.0-100.0) fL MCH (25.0-34.0) pg MCHC (32.0-36.0) g/dL RDW Std Deviation (36.4-46.3) fL RDW Coeff of Osvaldo (11.5-14.5) % Plt Count (130-400) K/uL MPV (9.4-12.3) fL Immature Gran % (Auto) % Neut % (Auto) % Lymph % (Auto) % Trego % (Auto) % Eos % (Auto) % Baso % (Auto) % Neut # (Auto) (1.4-6.5) K/uL Lymph # (Auto) (1.2-3.4) K/uL Trego # (Auto) (0.24-0.82) K/uL Eos # (Auto) (0-0.50) K/uL Baso # (Auto) (0-0.2) K/uL Immature Gran # (Auto) (0.00-0.02) K/uL Sodium 141 (136-145) mmol/L Potassium 4.8 (3.5-5.1) mmol/L Chloride 109 H (98-107) mmol/L Carbon Dioxide 27 (21-32) mmol/L Anion Gap 5 (3-11) BUN 37 H (6-23) mg/dl Creatinine 1.97 H (0.6-1.2) mg/dl Est Cr Clr Drug Dosing 21.0 ml/min Est GFR ( Amer) 27.7 ml/min Est GFR (Non-Af Amer) 23.9 ml/min BUN/Creatinine Ratio 18.8 (10-20) Glucose 155 H (70-99(Fasting)) mg/dl POC Glucose 151 H 136 H (70-99) mg/dl Estimat Average Glucose mg/dl Hemoglobin A1c (4.5-5.6) % Calcium 9.3 (8.5-10.1) mg/dl Magnesium (1.7-2.4) mg/dl Iron (35-150) mcg/dl TIBC (250-450) mcg/dl Unsaturated IBC (155-355) mcg/dl Transferrin % Sat (15-50) % Ferritin (8-388) ng/ml Total Bilirubin (0.2-1.0) mg/dl AST (13-39) U/L ALT (7-52) U/L Alkaline Phosphatase (34-104) U/L Total Protein (6.0-8.3) gm/dl Albumin (3.4-5.0) gm/dl Globulin (2.5-4.0) gm/dl Albumin/Globulin Ratio (0.9-2) Vitamin B12 (180-914) pg/ml Folate (>5.38) ng/ml Random Vancomycin (10-20) mcg/ml 07/13/22 07/14/22 07/14/22 Range/Units 21:20 05:32 05:32 WBC 7.71 (4.8-10.8) K/ul RBC 3.16 L (3.93-5.22) M/uL Hgb 8.2 L (12.0-16.0) g/dl Hct 27.3 L (34.1-44.9) % MCV 86.4 (80.0-100.0) fL MCH 25.9 (25.0-34.0) pg MCHC 30.0 L (32.0-36.0) g/dL RDW Std Deviation 46.1 (36.4-46.3) fL RDW Coeff of Osvaldo 14.6 H (11.5-14.5) % Plt Count 309 (130-400) K/uL MPV 9.4 (9.4-12.3) fL Immature Gran % (Auto) % Neut % (Auto) % Lymph % (Auto) % Trego % (Auto) % Eos % (Auto) % Baso % (Auto) % Neut # (Auto) (1.4-6.5) K/uL Lymph # (Auto) (1.2-3.4) K/uL Trego # (Auto) (0.24-0.82) K/uL Eos # (Auto) (0-0.50) K/uL Baso # (Auto) (0-0.2) K/uL Immature Gran # (Auto) (0.00-0.02) K/uL Sodium 142 (136-145) mmol/L Potassium 4.6 (3.5-5.1) mmol/L Chloride 112 H (98-107) mmol/L Carbon Dioxide 23 (21-32) mmol/L Anion Gap 7 (3-11) BUN 31 H (6-23) mg/dl Creatinine 1.69 H (0.6-1.2) mg/dl Est Cr Clr Drug Dosing 24.5 ml/min Est GFR ( Amer) 33.4 ml/min Est GFR (Non-Af Amer) 28.8 ml/min BUN/Creatinine Ratio 18.3 (10-20) Glucose 112 H (70-99(Fasting)) mg/dl POC Glucose 168 H (70-99) mg/dl Estimat Average Glucose mg/dl Hemoglobin A1c (4.5-5.6) % Calcium 8.5 (8.5-10.1) mg/dl Magnesium (1.7-2.4) mg/dl Iron (35-150) mcg/dl TIBC (250-450) mcg/dl Unsaturated IBC (155-355) mcg/dl Transferrin % Sat (15-50) % Ferritin (8-388) ng/ml Total Bilirubin (0.2-1.0) mg/dl AST (13-39) U/L ALT (7-52) U/L Alkaline Phosphatase (34-104) U/L Total Protein (6.0-8.3) gm/dl Albumin (3.4-5.0) gm/dl Globulin (2.5-4.0) gm/dl Albumin/Globulin Ratio (0.9-2) Vitamin B12 (180-914) pg/ml Folate (>5.38) ng/ml Random Vancomycin (10-20) mcg/ml 07/14/22 07/14/22 07/14/22 Range/Units 07:59 11:51 13:20 WBC (4.8-10.8) K/ul RBC (3.93-5.22) M/uL Hgb (12.0-16.0) g/dl Hct (34.1-44.9) % MCV (80.0-100.0) fL MCH (25.0-34.0) pg MCHC (32.0-36.0) g/dL RDW Std Deviation (36.4-46.3) fL RDW Coeff of Osvaldo (11.5-14.5) % Plt Count (130-400) K/uL MPV (9.4-12.3) fL Immature Gran % (Auto) % Neut % (Auto) % Lymph % (Auto) % Trego % (Auto) % Eos % (Auto) % Baso % (Auto) % Neut # (Auto) (1.4-6.5) K/uL Lymph # (Auto) (1.2-3.4) K/uL Trego # (Auto) (0.24-0.82) K/uL Eos # (Auto) (0-0.50) K/uL Baso # (Auto) (0-0.2) K/uL Immature Gran # (Auto) (0.00-0.02) K/uL Sodium (136-145) mmol/L Potassium (3.5-5.1) mmol/L Chloride (98-107) mmol/L Carbon Dioxide (21-32) mmol/L Anion Gap (3-11) BUN (6-23) mg/dl Creatinine (0.6-1.2) mg/dl Est Cr Clr Drug Dosing ml/min Est GFR ( Amer) ml/min Est GFR (Non-Af Amer) ml/min BUN/Creatinine Ratio (10-20) Glucose (70-99(Fasting)) mg/dl POC Glucose 120 H 189 H (70-99) mg/dl Estimat Average Glucose mg/dl Hemoglobin A1c (4.5-5.6) % Calcium (8.5-10.1) mg/dl Magnesium (1.7-2.4) mg/dl Iron (35-150) mcg/dl TIBC (250-450) mcg/dl Unsaturated IBC (155-355) mcg/dl Transferrin % Sat (15-50) % Ferritin (8-388) ng/ml Total Bilirubin (0.2-1.0) mg/dl AST (13-39) U/L ALT (7-52) U/L Alkaline Phosphatase (34-104) U/L Total Protein (6.0-8.3) gm/dl Albumin (3.4-5.0) gm/dl Globulin (2.5-4.0) gm/dl Albumin/Globulin Ratio (0.9-2) Vitamin B12 (180-914) pg/ml Folate (>5.38) ng/ml Random Vancomycin 21.6 H (10-20) mcg/ml 07/14/22 07/14/22 07/14/22 Range/Units 17:01 20:47 20:49 WBC (4.8-10.8) K/ul RBC (3.93-5.22) M/uL Hgb (12.0-16.0) g/dl Hct (34.1-44.9) % MCV (80.0-100.0) fL MCH (25.0-34.0) pg MCHC (32.0-36.0) g/dL RDW Std Deviation (36.4-46.3) fL RDW Coeff of Osvaldo (11.5-14.5) % Plt Count (130-400) K/uL MPV (9.4-12.3) fL Immature Gran % (Auto) % Neut % (Auto) % Lymph % (Auto) % Trego % (Auto) % Eos % (Auto) % Baso % (Auto) % Neut # (Auto) (1.4-6.5) K/uL Lymph # (Auto) (1.2-3.4) K/uL Trego # (Auto) (0.24-0.82) K/uL Eos # (Auto) (0-0.50) K/uL Baso # (Auto) (0-0.2) K/uL Immature Gran # (Auto) (0.00-0.02) K/uL Sodium (136-145) mmol/L Potassium (3.5-5.1) mmol/L Chloride (98-107) mmol/L Carbon Dioxide (21-32) mmol/L Anion Gap (3-11) BUN (6-23) mg/dl Creatinine (0.6-1.2) mg/dl Est Cr Clr Drug Dosing ml/min Est GFR ( Amer) ml/min Est GFR (Non-Af Amer) ml/min BUN/Creatinine Ratio (10-20) Glucose (70-99(Fasting)) mg/dl POC Glucose 92 48 L* 48 L* (70-99) mg/dl Estimat Average Glucose mg/dl Hemoglobin A1c (4.5-5.6) % Calcium (8.5-10.1) mg/dl Magnesium (1.7-2.4) mg/dl Iron (35-150) mcg/dl TIBC (250-450) mcg/dl Unsaturated IBC (155-355) mcg/dl Transferrin % Sat (15-50) % Ferritin (8-388) ng/ml Total Bilirubin (0.2-1.0) mg/dl AST (13-39) U/L ALT (7-52) U/L Alkaline Phosphatase (34-104) U/L Total Protein (6.0-8.3) gm/dl Albumin (3.4-5.0) gm/dl Globulin (2.5-4.0) gm/dl Albumin/Globulin Ratio (0.9-2) Vitamin B12 (180-914) pg/ml Folate (>5.38) ng/ml Random Vancomycin (10-20) mcg/ml 07/14/22 07/14/22 07/14/22 Range/Units 21:13 21:37 21:59 WBC (4.8-10.8) K/ul RBC (3.93-5.22) M/uL Hgb (12.0-16.0) g/dl Hct (34.1-44.9) % MCV (80.0-100.0) fL MCH (25.0-34.0) pg MCHC (32.0-36.0) g/dL RDW Std Deviation (36.4-46.3) fL RDW Coeff of Osvaldo (11.5-14.5) % Plt Count (130-400) K/uL MPV (9.4-12.3) fL Immature Gran % (Auto) % Neut % (Auto) % Lymph % (Auto) % Trego % (Auto) % Eos % (Auto) % Baso % (Auto) % Neut # (Auto) (1.4-6.5) K/uL Lymph # (Auto) (1.2-3.4) K/uL Trego # (Auto) (0.24-0.82) K/uL Eos # (Auto) (0-0.50) K/uL Baso # (Auto) (0-0.2) K/uL Immature Gran # (Auto) (0.00-0.02) K/uL Sodium (136-145) mmol/L Potassium (3.5-5.1) mmol/L Chloride (98-107) mmol/L Carbon Dioxide (21-32) mmol/L Anion Gap (3-11) BUN (6-23) mg/dl Creatinine (0.6-1.2) mg/dl Est Cr Clr Drug Dosing ml/min Est GFR ( Amer) ml/min Est GFR (Non-Af Amer) ml/min BUN/Creatinine Ratio (10-20) Glucose (70-99(Fasting)) mg/dl POC Glucose 68 L* 69 L* 88 (70-99) mg/dl Estimat Average Glucose mg/dl Hemoglobin A1c (4.5-5.6) % Calcium (8.5-10.1) mg/dl Magnesium (1.7-2.4) mg/dl Iron (35-150) mcg/dl TIBC (250-450) mcg/dl Unsaturated IBC (155-355) mcg/dl Transferrin % Sat (15-50) % Ferritin (8-388) ng/ml Total Bilirubin (0.2-1.0) mg/dl AST (13-39) U/L ALT (7-52) U/L Alkaline Phosphatase (34-104) U/L Total Protein (6.0-8.3) gm/dl Albumin (3.4-5.0) gm/dl Globulin (2.5-4.0) gm/dl Albumin/Globulin Ratio (0.9-2) Vitamin B12 (180-914) pg/ml Folate (>5.38) ng/ml Random Vancomycin (10-20) mcg/ml 07/15/22 07/15/22 07/15/22 Range/Units 07:45 07:45 07:45 WBC 7.36 (4.8-10.8) K/ul RBC 3.06 L (3.93-5.22) M/uL Hgb 8.1 L (12.0-16.0) g/dl Hct 26.2 L (34.1-44.9) % MCV 85.6 (80.0-100.0) fL MCH 26.5 (25.0-34.0) pg MCHC 30.9 L (32.0-36.0) g/dL RDW Std Deviation 46.0 (36.4-46.3) fL RDW Coeff of Osvaldo 14.8 H (11.5-14.5) % Plt Count 288 (130-400) K/uL MPV 9.4 (9.4-12.3) fL Immature Gran % (Auto) 0.3 % Neut % (Auto) 61.0 % Lymph % (Auto) 28.5 % Trego % (Auto) 6.4 % Eos % (Auto) 3.3 % Baso % (Auto) 0.5 % Neut # (Auto) 4.49 (1.4-6.5) K/uL Lymph # (Auto) 2.10 (1.2-3.4) K/uL Trego # (Auto) 0.47 (0.24-0.82) K/uL Eos # (Auto) 0.24 (0-0.50) K/uL Baso # (Auto) 0.04 (0-0.2) K/uL Immature Gran # (Auto) 0.02 (0.00-0.02) K/uL Sodium (136-145) mmol/L Potassium (3.5-5.1) mmol/L Chloride (98-107) mmol/L Carbon Dioxide (21-32) mmol/L Anion Gap (3-11) BUN (6-23) mg/dl Creatinine 2.03 H D (0.6-1.2) mg/dl Est Cr Clr Drug Dosing 20.4 ml/min Est GFR ( Amer) 26.7 ml/min Est GFR (Non-Af Amer) 23.1 ml/min BUN/Creatinine Ratio (10-20) Glucose (70-99(Fasting)) mg/dl POC Glucose (70-99) mg/dl Estimat Average Glucose 163 mg/dl Hemoglobin A1c 7.3 H (4.5-5.6) % Calcium (8.5-10.1) mg/dl Magnesium (1.7-2.4) mg/dl Iron (35-150) mcg/dl TIBC (250-450) mcg/dl Unsaturated IBC (155-355) mcg/dl Transferrin % Sat (15-50) % Ferritin (8-388) ng/ml Total Bilirubin (0.2-1.0) mg/dl AST (13-39) U/L ALT (7-52) U/L Alkaline Phosphatase (34-104) U/L Total Protein (6.0-8.3) gm/dl Albumin (3.4-5.0) gm/dl Globulin (2.5-4.0) gm/dl Albumin/Globulin Ratio (0.9-2) Vitamin B12 (180-914) pg/ml Folate (>5.38) ng/ml Random Vancomycin (10-20) mcg/ml 07/15/22 07/15/22 07/15/22 Range/Units 08:00 12:14 17:07 WBC (4.8-10.8) K/ul RBC (3.93-5.22) M/uL Hgb (12.0-16.0) g/dl Hct (34.1-44.9) % MCV (80.0-100.0) fL MCH (25.0-34.0) pg MCHC (32.0-36.0) g/dL RDW Std Deviation (36.4-46.3) fL RDW Coeff of Osvaldo (11.5-14.5) % Plt Count (130-400) K/uL MPV (9.4-12.3) fL Immature Gran % (Auto) % Neut % (Auto) % Lymph % (Auto) % Trego % (Auto) % Eos % (Auto) % Baso % (Auto) % Neut # (Auto) (1.4-6.5) K/uL Lymph # (Auto) (1.2-3.4) K/uL Trego # (Auto) (0.24-0.82) K/uL Eos # (Auto) (0-0.50) K/uL Baso # (Auto) (0-0.2) K/uL Immature Gran # (Auto) (0.00-0.02) K/uL Sodium (136-145) mmol/L Potassium (3.5-5.1) mmol/L Chloride (98-107) mmol/L Carbon Dioxide (21-32) mmol/L Anion Gap (3-11) BUN (6-23) mg/dl Creatinine (0.6-1.2) mg/dl Est Cr Clr Drug Dosing ml/min Est GFR ( Amer) ml/min Est GFR (Non-Af Amer) ml/min BUN/Creatinine Ratio (10-20) Glucose (70-99(Fasting)) mg/dl POC Glucose 190 H 176 H 61 L* (70-99) mg/dl Estimat Average Glucose mg/dl Hemoglobin A1c (4.5-5.6) % Calcium (8.5-10.1) mg/dl Magnesium (1.7-2.4) mg/dl Iron (35-150) mcg/dl TIBC (250-450) mcg/dl Unsaturated IBC (155-355) mcg/dl Transferrin % Sat (15-50) % Ferritin (8-388) ng/ml Total Bilirubin (0.2-1.0) mg/dl AST (13-39) U/L ALT (7-52) U/L Alkaline Phosphatase (34-104) U/L Total Protein (6.0-8.3) gm/dl Albumin (3.4-5.0) gm/dl Globulin (2.5-4.0) gm/dl Albumin/Globulin Ratio (0.9-2) Vitamin B12 (180-914) pg/ml Folate (>5.38) ng/ml Random Vancomycin (10-20) mcg/ml 07/15/22 07/15/22 07/15/22 Range/Units 17:13 17:32 20:38 WBC (4.8-10.8) K/ul RBC (3.93-5.22) M/uL Hgb (12.0-16.0) g/dl Hct (34.1-44.9) % MCV (80.0-100.0) fL MCH (25.0-34.0) pg MCHC (32.0-36.0) g/dL RDW Std Deviation (36.4-46.3) fL RDW Coeff of Osvaldo (11.5-14.5) % Plt Count (130-400) K/uL MPV (9.4-12.3) fL Immature Gran % (Auto) % Neut % (Auto) % Lymph % (Auto) % Trego % (Auto) % Eos % (Auto) % Baso % (Auto) % Neut # (Auto) (1.4-6.5) K/uL Lymph # (Auto) (1.2-3.4) K/uL Trego # (Auto) (0.24-0.82) K/uL Eos # (Auto) (0-0.50) K/uL Baso # (Auto) (0-0.2) K/uL Immature Gran # (Auto) (0.00-0.02) K/uL Sodium (136-145) mmol/L Potassium (3.5-5.1) mmol/L Chloride (98-107) mmol/L Carbon Dioxide (21-32) mmol/L Anion Gap (3-11) BUN (6-23) mg/dl Creatinine (0.6-1.2) mg/dl Est Cr Clr Drug Dosing ml/min Est GFR ( Amer) ml/min Est GFR (Non-Af Amer) ml/min BUN/Creatinine Ratio (10-20) Glucose (70-99(Fasting)) mg/dl POC Glucose 77 81 117 H (70-99) mg/dl Estimat Average Glucose mg/dl Hemoglobin A1c (4.5-5.6) % Calcium (8.5-10.1) mg/dl Magnesium (1.7-2.4) mg/dl Iron (35-150) mcg/dl TIBC (250-450) mcg/dl Unsaturated IBC (155-355) mcg/dl Transferrin % Sat (15-50) % Ferritin (8-388) ng/ml Total Bilirubin (0.2-1.0) mg/dl AST (13-39) U/L ALT (7-52) U/L Alkaline Phosphatase (34-104) U/L Total Protein (6.0-8.3) gm/dl Albumin (3.4-5.0) gm/dl Globulin (2.5-4.0) gm/dl Albumin/Globulin Ratio (0.9-2) Vitamin B12 (180-914) pg/ml Folate (>5.38) ng/ml Random Vancomycin (10-20) mcg/ml 07/16/22 07/16/22 07/16/22 Range/Units 06:55 06:55 06:55 WBC 6.40 (4.8-10.8) K/ul RBC 3.12 L (3.93-5.22) M/uL Hgb 8.3 L (12.0-16.0) g/dl Hct 26.5 L (34.1-44.9) % MCV 84.9 (80.0-100.0) fL MCH 26.6 (25.0-34.0) pg MCHC 31.3 L (32.0-36.0) g/dL RDW Std Deviation 45.6 (36.4-46.3) fL RDW Coeff of Osvaldo 14.8 H (11.5-14.5) % Plt Count 329 (130-400) K/uL MPV 9.8 (9.4-12.3) fL Immature Gran % (Auto) % Neut % (Auto) % Lymph % (Auto) % Trego % (Auto) % Eos % (Auto) % Baso % (Auto) % Neut # (Auto) (1.4-6.5) K/uL Lymph # (Auto) (1.2-3.4) K/uL Trego # (Auto) (0.24-0.82) K/uL Eos # (Auto) (0-0.50) K/uL Baso # (Auto) (0-0.2) K/uL Immature Gran # (Auto) (0.00-0.02) K/uL Sodium 143 (136-145) mmol/L Potassium 4.8 (3.5-5.1) mmol/L Chloride 112 H (98-107) mmol/L Carbon Dioxide 26 (21-32) mmol/L Anion Gap 5 (3-11) BUN 34 H (6-23) mg/dl Creatinine 1.92 H (0.6-1.2) mg/dl Est Cr Clr Drug Dosing 21.6 ml/min Est GFR ( Amer) 28.6 ml/min Est GFR (Non-Af Amer) 24.7 ml/min BUN/Creatinine Ratio 17.7 (10-20) Glucose 137 H (70-99(Fasting)) mg/dl POC Glucose (70-99) mg/dl Estimat Average Glucose mg/dl Hemoglobin A1c (4.5-5.6) % Calcium 9.4 (8.5-10.1) mg/dl Magnesium (1.7-2.4) mg/dl Iron 34 L (35-150) mcg/dl TIBC 214 L (250-450) mcg/dl Unsaturated IBC 180 (155-355) mcg/dl Transferrin % Sat 16 (15-50) % Ferritin 48.8 (8-388) ng/ml Total Bilirubin (0.2-1.0) mg/dl AST (13-39) U/L ALT (7-52) U/L Alkaline Phosphatase (34-104) U/L Total Protein (6.0-8.3) gm/dl Albumin (3.4-5.0) gm/dl Globulin (2.5-4.0) gm/dl Albumin/Globulin Ratio (0.9-2) Vitamin B12 (180-914) pg/ml Folate (>5.38) ng/ml Random Vancomycin (10-20) mcg/ml 07/16/22 07/16/22 07/16/22 Range/Units 08:11 12:00 12:49 WBC (4.8-10.8) K/ul RBC (3.93-5.22) M/uL Hgb (12.0-16.0) g/dl Hct (34.1-44.9) % MCV (80.0-100.0) fL MCH (25.0-34.0) pg MCHC (32.0-36.0) g/dL RDW Std Deviation (36.4-46.3) fL RDW Coeff of Osvaldo (11.5-14.5) % Plt Count (130-400) K/uL MPV (9.4-12.3) fL Immature Gran % (Auto) % Neut % (Auto) % Lymph % (Auto) % Trego % (Auto) % Eos % (Auto) % Baso % (Auto) % Neut # (Auto) (1.4-6.5) K/uL Lymph # (Auto) (1.2-3.4) K/uL Trego # (Auto) (0.24-0.82) K/uL Eos # (Auto) (0-0.50) K/uL Baso # (Auto) (0-0.2) K/uL Immature Gran # (Auto) (0.00-0.02) K/uL Sodium 139 (136-145) mmol/L Potassium 5.7 H (3.5-5.1) mmol/L Chloride 108 H (98-107) mmol/L Carbon Dioxide 27 (21-32) mmol/L Anion Gap 4 (3-11) BUN 35 H (6-23) mg/dl Creatinine 2.02 H (0.6-1.2) mg/dl Est Cr Clr Drug Dosing 20.5 ml/min Est GFR ( Amer) 26.9 ml/min Est GFR (Non-Af Amer) 23.2 ml/min BUN/Creatinine Ratio 17.3 (10-20) Glucose 223 H (70-99(Fasting)) mg/dl POC Glucose 163 H 246 H (70-99) mg/dl Estimat Average Glucose mg/dl Hemoglobin A1c (4.5-5.6) % Calcium 9.7 (8.5-10.1) mg/dl Magnesium (1.7-2.4) mg/dl Iron (35-150) mcg/dl TIBC (250-450) mcg/dl Unsaturated IBC (155-355) mcg/dl Transferrin % Sat (15-50) % Ferritin (8-388) ng/ml Total Bilirubin (0.2-1.0) mg/dl AST (13-39) U/L ALT (7-52) U/L Alkaline Phosphatase (34-104) U/L Total Protein (6.0-8.3) gm/dl Albumin (3.4-5.0) gm/dl Globulin (2.5-4.0) gm/dl Albumin/Globulin Ratio (0.9-2) Vitamin B12 (180-914) pg/ml Folate (>5.38) ng/ml Random Vancomycin (10-20) mcg/ml 07/16/22 07/16/22 07/16/22 Range/Units 12:49 17:08 20:46 WBC (4.8-10.8) K/ul RBC (3.93-5.22) M/uL Hgb (12.0-16.0) g/dl Hct (34.1-44.9) % MCV (80.0-100.0) fL MCH (25.0-34.0) pg MCHC (32.0-36.0) g/dL RDW Std Deviation (36.4-46.3) fL RDW Coeff of Osvaldo (11.5-14.5) % Plt Count (130-400) K/uL MPV (9.4-12.3) fL Immature Gran % (Auto) % Neut % (Auto) % Lymph % (Auto) % Trego % (Auto) % Eos % (Auto) % Baso % (Auto) % Neut # (Auto) (1.4-6.5) K/uL Lymph # (Auto) (1.2-3.4) K/uL Trego # (Auto) (0.24-0.82) K/uL Eos # (Auto) (0-0.50) K/uL Baso # (Auto) (0-0.2) K/uL Immature Gran # (Auto) (0.00-0.02) K/uL Sodium (136-145) mmol/L Potassium (3.5-5.1) mmol/L Chloride (98-107) mmol/L Carbon Dioxide (21-32) mmol/L Anion Gap (3-11) BUN (6-23) mg/dl Creatinine (0.6-1.2) mg/dl Est Cr Clr Drug Dosing ml/min Est GFR ( Amer) ml/min Est GFR (Non-Af Amer) ml/min BUN/Creatinine Ratio (10-20) Glucose (70-99(Fasting)) mg/dl POC Glucose 106 H 160 H (70-99) mg/dl Estimat Average Glucose mg/dl Hemoglobin A1c (4.5-5.6) % Calcium (8.5-10.1) mg/dl Magnesium (1.7-2.4) mg/dl Iron (35-150) mcg/dl TIBC (250-450) mcg/dl Unsaturated IBC (155-355) mcg/dl Transferrin % Sat (15-50) % Ferritin (8-388) ng/ml Total Bilirubin (0.2-1.0) mg/dl AST (13-39) U/L ALT (7-52) U/L Alkaline Phosphatase (34-104) U/L Total Protein (6.0-8.3) gm/dl Albumin (3.4-5.0) gm/dl Globulin (2.5-4.0) gm/dl Albumin/Globulin Ratio (0.9-2) Vitamin B12 434 (180-914) pg/ml Folate (>5.38) ng/ml Random Vancomycin (10-20) mcg/ml 07/17/22 07/17/22 07/17/22 Range/Units 05:50 05:50 08:09 WBC 8.16 (4.8-10.8) K/ul RBC 3.16 L (3.93-5.22) M/uL Hgb 8.4 L (12.0-16.0) g/dl Hct 26.6 L (34.1-44.9) % MCV 84.2 (80.0-100.0) fL MCH 26.6 (25.0-34.0) pg MCHC 31.6 L (32.0-36.0) g/dL RDW Std Deviation 45.3 (36.4-46.3) fL RDW Coeff of Osvaldo 14.7 H (11.5-14.5) % Plt Count 339 (130-400) K/uL MPV 9.4 (9.4-12.3) fL Immature Gran % (Auto) % Neut % (Auto) % Lymph % (Auto) % Trego % (Auto) % Eos % (Auto) % Baso % (Auto) % Neut # (Auto) (1.4-6.5) K/uL Lymph # (Auto) (1.2-3.4) K/uL Trego # (Auto) (0.24-0.82) K/uL Eos # (Auto) (0-0.50) K/uL Baso # (Auto) (0-0.2) K/uL Immature Gran # (Auto) (0.00-0.02) K/uL Sodium 140 (136-145) mmol/L Potassium 4.7 (3.5-5.1) mmol/L Chloride 110 H (98-107) mmol/L Carbon Dioxide 23 (21-32) mmol/L Anion Gap 7 (3-11) BUN 38 H (6-23) mg/dl Creatinine 2.25 H (0.6-1.2) mg/dl Est Cr Clr Drug Dosing 18.4 ml/min Est GFR ( Amer) 23.6 ml/min Est GFR (Non-Af Amer) 20.4 ml/min BUN/Creatinine Ratio 16.9 (10-20) Glucose 199 H (70-99(Fasting)) mg/dl POC Glucose 275 H (70-99) mg/dl Estimat Average Glucose mg/dl Hemoglobin A1c (4.5-5.6) % Calcium 9.0 (8.5-10.1) mg/dl Magnesium 1.6 L (1.7-2.4) mg/dl Iron (35-150) mcg/dl TIBC (250-450) mcg/dl Unsaturated IBC (155-355) mcg/dl Transferrin % Sat (15-50) % Ferritin (8-388) ng/ml Total Bilirubin 0.2 (0.2-1.0) mg/dl AST 14 (13-39) U/L ALT 10 (7-52) U/L Alkaline Phosphatase 55 (34-104) U/L Total Protein 6.8 (6.0-8.3) gm/dl Albumin 3.1 L (3.4-5.0) gm/dl Globulin 3.7 (2.5-4.0) gm/dl Albumin/Globulin Ratio 0.8 L (0.9-2) Vitamin B12 (180-914) pg/ml Folate (>5.38) ng/ml Random Vancomycin (10-20) mcg/ml 07/17/22 07/17/22 07/17/22 Range/Units 12:16 17:09 20:39 WBC (4.8-10.8) K/ul RBC (3.93-5.22) M/uL Hgb (12.0-16.0) g/dl Hct (34.1-44.9) % MCV (80.0-100.0) fL MCH (25.0-34.0) pg MCHC (32.0-36.0) g/dL RDW Std Deviation (36.4-46.3) fL RDW Coeff of Osvaldo (11.5-14.5) % Plt Count (130-400) K/uL MPV (9.4-12.3) fL Immature Gran % (Auto) % Neut % (Auto) % Lymph % (Auto) % Treg[place] % (Auto) % Eos % (Auto) % Baso % (Auto) % Neut # (Auto) (1.4-6.5) K/uL Lymph # (Auto) (1.2-3.4) K/uL Trego # (Auto) (0.24-0.82) K/uL Eos # (Auto) (0-0.50) K/uL Baso # (Auto) (0-0.2) K/uL Immature Gran # (Auto) (0.00-0.02) K/uL Sodium (136-145) mmol/L Potassium (3.5-5.1) mmol/L Chloride (98-107) mmol/L Carbon Dioxide (21-32) mmol/L Anion Gap (3-11) BUN (6-23) mg/dl Creatinine (0.6-1.2) mg/dl Est Cr Clr Drug Dosing ml/min Est GFR ( Amer) ml/min Est GFR (Non-Af Amer) ml/min BUN/Creatinine Ratio (10-20) Glucose (70-99(Fasting)) mg/dl POC Glucose 264 H 119 H 134 H (70-99) mg/dl Estimat Average Glucose mg/dl Hemoglobin A1c (4.5-5.6) % Calcium (8.5-10.1) mg/dl Magnesium (1.7-2.4) mg/dl Iron (35-150) mcg/dl TIBC (250-450) mcg/dl Unsaturated IBC (155-355) mcg/dl Transferrin % Sat (15-50) % Ferritin (8-388) ng/ml Total Bilirubin (0.2-1.0) mg/dl AST (13-39) U/L ALT (7-52) U/L Alkaline Phosphatase (34-104) U/L Total Protein (6.0-8.3) gm/dl Albumin (3.4-5.0) gm/dl Globulin (2.5-4.0) gm/dl Albumin/Globulin Ratio (0.9-2) Vitamin B12 (180-914) pg/ml Folate (>5.38) ng/ml Random Vancomycin (10-20) mcg/ml 07/18/22 07/18/22 07/18/22 Range/Units 06:30 06:30 07:01 WBC (4.8-10.8) K/ul RBC (3.93-5.22) M/uL Hgb (12.0-16.0) g/dl Hct (34.1-44.9) % MCV (80.0-100.0) fL MCH (25.0-34.0) pg MCHC (32.0-36.0) g/dL RDW Std Deviation (36.4-46.3) fL RDW Coeff of Osvaldo (11.5-14.5) % Plt Count (130-400) K/uL MPV (9.4-12.3) fL Immature Gran % (Auto) % Neut % (Auto) % Lymph % (Auto) % [place] % (Auto) % Eos % (Auto) % Baso % (Auto) % Neut # (Auto) (1.4-6.5) K/uL Lymph # (Auto) (1.2-3.4) K/uL Treg[place] # (Auto) (0.24-0.82) K/uL Eos # (Auto) (0-0.50) K/uL Baso # (Auto) (0-0.2) K/uL Immature Gran # (Auto) (0.00-0.02) K/uL Sodium 140 (136-145) mmol/L Potassium 4.2 (3.5-5.1) mmol/L Chloride 111 H (98-107) mmol/L Carbon Dioxide 23 (21-32) mmol/L Anion Gap 6 (3-11) BUN 43 H (6-23) mg/dl Creatinine 2.32 H (0.6-1.2) mg/dl Est Cr Clr Drug Dosing 17.9 ml/min Est GFR ( Amer) 22.8 ml/min Est GFR (Non-Af Amer) 19.6 ml/min BUN/Creatinine Ratio 18.5 (10-20) Glucose 163 H (70-99(Fasting)) mg/dl POC Glucose 179 H (70-99) mg/dl Estimat Average Glucose mg/dl Hemoglobin A1c (4.5-5.6) % Calcium 9.1 (8.5-10.1) mg/dl Magnesium 2.0 (1.7-2.4) mg/dl Iron (35-150) mcg/dl TIBC (250-450) mcg/dl Unsaturated IBC (155-355) mcg/dl Transferrin % Sat (15-50) % Ferritin (8-388) ng/ml Total Bilirubin (0.2-1.0) mg/dl AST (13-39) U/L ALT (7-52) U/L Alkaline Phosphatase (34-104) U/L Total Protein (6.0-8.3) gm/dl Albumin (3.4-5.0) gm/dl Globulin (2.5-4.0) gm/dl Albumin/Globulin Ratio (0.9-2) Vitamin B12 (180-914) pg/ml Folate > 22.30 (>5.38) ng/ml Random Vancomycin (10-20) mcg/ml Total Time Total Time Spent Total Time Spent (In Minutes): 20 Discharge Plan Discharge Items Patient Disposition: Home - Home Health Services Reason For Visit: right ankle infected retrocalcaneal nail, cellulit Discharge Diagnosis: Right ankle infected retrocalcaneal nail Activity: Per Instructions section Weightbearing: Right non-weightbearing Weightbearing Comment: Use walker or crutches for ambulation Non-emergency contact: Surgeon Call non-emergency contact if: you have any medication questions, your pain is not controlled, your temperature is above 101.5, your wound has increased redness and your wound has increased drainage Follow-up/Referrals: Luis Wallis DO [Surgeon] - (Follow-up in 10 to 14 days from the day of surgery for your first wound check.) Jorge Barker MD [Primary Care Provider] - None (Follow-up in 1 week with your primary care provider to recheck lab work and also to discuss possible need for nephrology referral) Diet: Carb Consistent or DM2 Addtl Attending Provider Instructions: You will be receiving home IV antibiotics for 6 to 8 weeks. Home health services will help take care of your PICC line and help with antibiotic administration. You will also have biweekly lab draws to continue to follow your kidney function as well as electrolytes and white blood cell count. ACTIVITY RECOMMENDATIONS: Limitations: No weight bearing to affected limb at all times. SPECIAL CARE INSTRUCTIONS: * Some drainage onto the dressing is normal and is no cause for alarm. * Some swelling is natural especially after walking. * When resting, keep your foot elevated above the level of your heart. * Call [facility] if you notice: -Increased drainage -Fever over 101 degrees F -Severe constant pain BANDAGE: * CHANGE YOUR DRESSING EVERY OTHER DAY UNLESS YOU NOTICE SATURATION OF THE PRACHI WRAP BEFORE IT'S TIME TO BE CHANGED. . DRESSING SUPPLIES NEEDED; ADAPTIC VASELINE GAUZE, 4X4 GAUZE, ABD PAD (ABDOMINAL PAD FOR BOTTOM OF FOOT. PLACE ON TOP OF 4X4'S, KERLIX WRAP TO KEEP DRESSING AND SPLINT ON. PRACHI WRAPS. * Keep bandage/cast dry at all times. FOLLOW UP VISIT WITH DR. WALLIS If appointment is not already scheduled: Please call [facility] after you get home today to schedule a follow-up appointment for [address] Wallis at . Addtl [employer] Assistant Provider Instructions: Your metformin has been discontinued due to your renal function. You should continue to check your blood sugars at home and stick to a low carb diet. You should continue your insulin and have close follow up with your PCP to discuss increasing this. I have also decreased your gabapentin to TWICE daily given renal function. Given your kidney function classifies as stage 3/4 and you have never been seen by nephrology in the past, it is recommended you discuss with your primary care about a referral to specialist for closer monitoring and prevention of progression of your kidney disease. We have restarted the amlodipine 5mg daily for better blood pressure control and you should monitor your blood pressures at home. It is also recommended that you have an arterial duplex of your legs to ensure good blood flow and adequate healing given nursing home antibiotic use. Stand-Alone Forms: My [employer], Smoking Cessation Medications and DC Order Prescriptions: New aspirin 81 mg Tablet,Delayed Release (Dr/Ec) 81 mg PO BID 30 Days Qty: 60 0RF acetaminophen [Tylenol Extra Strength] 500 mg Tablet 1,000 mg PO Q8 14 Days Qty: 84 0RF oxycodone 5 mg tablet 5 mg PO Q4H MDD 6 PRN (Reason: pain) Qty: 30 0RF cefepime 1 gram recon soln 1 g IV Q12H 42 Days Qty: 10 0RF amlodipine 5 mg tablet 5 mg PO DAILY Qty: 30 0RF Continued multivitamin Tablet 1 tab PO QAM pantoprazole 40 mg Tablet,Delayed Release (Dr/Ec) 40 mg PO QAM insulin NPH and regular human 100 unit/mL (70-30) Cartridge 22 - 28 unit SUBCUT BID rosuvastatin 5 mg Tablet 5 mg PO Q2D Probiotic 3 billion cell Capsule 3,000 mmu cells PO QPM Rx Instructions: administer with a meal Changed gabapentin 300 mg Capsule 300 mg PO BID Qty: 30 0RF Discontinued metformin 500 mg Tablet 500 mg PO BID aspirin [Aspir-81] 81 mg Tablet,Delayed Release (Dr/Ec) 81 mg PO QAM amoxicillin-pot clavulanate [Augmentin] 500-125 mg Tablet 1 tab PO BID Discharge Orders: Discharge Order (Routine); Ordered 07/18/22 Ordered By: Geo Leung/Other Patient Handouts: Controlling High Blood Pressure Admission Data Admit Date/Time: 07/13/22 18:59 Attending Provider: Luis Wallis Admit Provider: Luis Wallis Primary Care Provider: Jorge Barker Other Providers: Henry Mccrary ; Michael Roach Other Interventions: Discharge Summary Assessment (RN) Last Done: 07/18/22 08:19
== END 2022-07-18 08:53 | disposition home health service (06) | DRG 493 ==
LOC: ASU 11:41 → 3E 18:59